=== PATIENT | male | born 1940 | race Caucasian/White ===

== ENCOUNTER 2022-05-29 12:41 | Outpatient (CLI) | payer MEDICARE, BC, SELFPAY | END 2022-05-29 12:42 | disposition home or self-care (01) | LOC: AMB 06-27 14:40 | PROVIDERS: PCP Family Medicine; Visit Provider Emergency Medicine Emergency Medical Services | DX: M25.561 Pain in right knee (principal) ==

== ENCOUNTER 2023-07-23 20:05 | Outpatient (CLI) | payer MEDICARE, BC, SELFPAY | END 2023-07-23 20:06 | disposition home or self-care (01) | LOC: AMB 07-27 10:13 | PROVIDERS: PCP Internal Medicine; Visit Provider Emergency Medicine | DX: R53.1 Weakness (principal); R51.9 Headache, unspecified; I10 Essential (primary) hypertension | CPT/HCPCS: A0425; A0427 ==

== ENCOUNTER 2023-07-23 20:34 | Inpatient (IN) | payer MEDICARE, BC, SELFPAY ==
[2023-07-23] VITALS (12 sets, daily range): BP systolic 182–199; BP diastolic 103–162; PULSE 92–96; RESP 16; TEMP 37.9; O2SAT 92–98
--- NOTE | 2023-07-23 21:06 | CRLHL7_ITS ---
For Patients: As a result of the Cures Act, medical imaging exams and procedure reports are released immediately into your electronic medical record. You may view this report before your referring provider. If you have questions, please contact your health care provider. INDICATION: Fever, cough TECHNIQUE: Chest radiograph 1 view COMPARISON: 09/12/2020 FINDINGS: The sensitivity and specificity of the exam are moderately limited by the patient`s body habitus. Mediastinum: The mediastinum is normal in appearance. The cardiac silhouette is moderately enlarged but may be accentuated by the portable technique. Gas lucencies are seen below the right hemidiaphragm and likely due to interposed bowel loops given its morphology. Lung: Both lungs are unremarkable in appearance. No sign of pleural effusion seen. No pneumothorax is identified. Bone and Soft tissue: Unremarkable for age. IMPRESSION: 1. The cardiac silhouette is moderately enlarged but may be accentuated by the portable technique. Dictated by Doc Singer MD @ 07/23/2023 9:41:58 PM Dictated by: Doc Singer MD @ 07/23/2023 21:42:03 (Electronically Signed)
[2023-07-23 21:14] LABS: Lactate Sepsis w/Reflex* 1.5 mmol/L (0.5-1.9)
--- NOTE | 2023-07-23 21:21 | ED.GENADULT ---
HPI - General Adult General Date Seen: 07/23/23 Chief complaint: Weakness Stated complaint: pain Time Seen by Provider: 07/23/23 20:51 Source: patient, EMS and RN notes reviewed Mode of arrival: EMS Limitations: no limitations History of Present Illness HPI narrative: Patient is an 83-year-old who lives independently at [facility]. Comes in tonight because of weakness, inability to get off his chair. He normally walks independently with a cane. He says he has felt poorly since yesterday with headache, sore throat, cough, shortness of breath and body aches. He feels generally weak, no focal weakness. He has not had any vomiting or diarrhea. No abdominal pain but he has had nausea. No chest pain. Paramedics apparently had concerns about atrial fibrillation, heart rate is normal on monitor and looks regular. He has no complaints of palpitations lightheadedness or syncope. Related Data Previous Rx's Medication Instructions Recorded diltiazem HCl 120 mg capsule,24 120 mg PO QDAY #90 caps 07/12/22 hr,extended release hydrochlorothiazide 25 mg tablet 25 mg PO QDAY #90 tabs 07/12/22 quetiapine 25 mg tablet 25 mg PO .Bedtime as needed PRN 07/12/22 anxiety #90 tabs Allergies Allergy/AdvReac Type Severity Reaction Status Date / Time house dust Allergy Mild Sneezing Verified 07/12/22 15:15 Review of Systems Status of ROS: Reports: 10 or more systems reviewed and unremarkable except as noted in History and below [facility] Medical History (Updated 07/24/23 @ 00:01 by Coty Noel MD) Unsteady gait ?R26.81 - Unsteadiness on feet (ICD-10) Supraventricular tachycardia ?I47.1 - Supraventricular tachycardia (ICD-10) Panic attack ?F41.0 - Panic disorder [episodic paroxysmal anxiety] (ICD-10) Nausea and vomiting ?R11.2 - Nausea with vomiting, unspecified (ICD-10) Mild cognitive impairment ?G31.84 - Mild cognitive impairment, so stated (ICD-10) Leukocytosis ?D72.829 - Elevated white blood cell count, unspecified (ICD-10) Hypertension ?I10 - Essential (primary) hypertension (ICD-10) High serum lactic acid ?R79.89 - Other specified abnormal findings of blood chemistry (ICD-10) Generalized anxiety disorder ?F41.1 - Generalized anxiety disorder (ICD-10) Gastroenteritis ?K52.9 - Noninfective gastroenteritis and colitis, unspecified (ICD-10) Excessive cerumen in ear canal ?H61.20 - Impacted cerumen, unspecified ear (ICD-10) Epigastric pain ?R10.13 - Epigastric pain (ICD-10) Due for screening ?Z13.9 - Encounter for screening, unspecified (ICD-10) Dehydration ?E86.0 - Dehydration (ICD-10) Ataxia ?R27.0 - Ataxia, unspecified (ICD-10) Anterior dislocation of right shoulder ?S43.014A - Anterior dislocation of right humerus, initial encounter (ICD-10) Acute gastroenteritis ?K52.9 - Noninfective gastroenteritis and colitis, unspecified (ICD-10) Excessive cerumen in both ear canals ?H61.23 - Impacted cerumen, bilateral (ICD-10) Weakness ?R53.1 - Weakness (ICD-10) Social History (Updated 07/23/23 @ 23:43 by Rishi Barlow MD) Narrative: Patient lives alone at [facility]. He is originally from [facility]. 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 His brother Ebenezer from [place], [place] is his healthcare power of claims attorney. Code status is DNR. He indicates that he would not want to be intubated if he developed respiratory failure from COVID. At [facility] he lives independently but does get meals in the dining room. He has never been a smoker. He does not drink alcohol. Smoking Status: Never smoker Non-prescribed substance use: denies use Exam Narrative: Exam Narrative: Vital signs as noted above. In general, an alert, nontoxic elderly male. Conversant, cooperative. Head: Normocephalic, atraumatic. Eyes: Pupils are equal reactive. Extraocular movements are full. Conjunctivae are normal. ENT: Mucous membranes are moist. Neck: Supple without lymphadenopathy. Heart: Regular rate and rhythm. No murmur or rub. Lungs: Clear bilaterally. No increased work of breathing, crackles or wheezes. Abdomen: Soft and nontender. No organomegaly. Extremities: Well perfused. No edema. No calf tenderness. Pulses intact. Neurologic: Patient is alert and oriented to person and place. Speech is fluent. Face is symmetric. Moves all extremities equally. Affect: Normal. Skin: Warm and dry. Well perfused. Const: Vital Signs, click to edit/add: Vital Signs - 24 hr 07/23/23 20:51 07/23/23 21:32 07/23/23 21:35 Temperature 100.2 F H Pulse Rate 96 Pulse Rate [Left P ulse Oximeter] 93 Respiratory Rate 16 Blood Pressure 192/162 H Blood Pressure [Le ft Upper Arm] 186/103 H Pulse Oximetry 95 98 96 Oxygen Delivery Me thod Room Air 07/23/23 21:36 07/23/23 21:45 07/23/23 21:47 Temperature Pulse Rate 94 93 94 Pulse Rate [Left P ulse Oximeter] Respiratory Rate Blood Pressure 192/110 H Blood Pressure [Le ft Upper Arm] Pulse Oximetry 96 95 95 Oxygen Delivery Me thod 07/23/23 22:00 07/23/23 22:02 07/23/23 22:15 Temperature Pulse Rate 94 94 94 Pulse Rate [Left P ulse Oximeter] Respiratory Rate Blood Pressure 190/111 H Blood Pressure [Le ft Upper Arm] Pulse Oximetry 96 96 97 Oxygen Delivery Me thod 07/23/23 22:16 07/23/23 22:30 07/23/23 22:31 Temperature Pulse Rate 94 92 93 Pulse Rate [Left P ulse Oximeter] Respiratory Rate Blood Pressure 199/104 H 182/110 H Blood Pressure [Le ft Upper Arm] Pulse Oximetry 92 94 94 Oxygen Delivery Me thod Documenting provider has reviewed patient's vital signs: yes Course Course ED Course: Will give some Tylenol and IV fluids here, check labs including a CBC, viral testing, UA and a chest x-ray to evaluate for possible source of fever and generalized weakness. Rule out COVID. Labs notable for a white blood cell count of 8.79, left shift with 84% neutrophils. Hemoglobin and platelets are normal. Metabolic panel is normal, blood sugar is 135. Lactate 1.5, LFTs are unremarkable. Troponin is less than 0.01. CRP mildly elevated at 3.7, D-dimer mildly elevated at 1.14. TSH is normal. COVID is positive. Chest x-ray by my review is fairly unremarkable, read as negative by Radiology. Patient has weakness presenting him from managing at home in his independent living situation. Plan will be admission to the hospital for observation, Remdesivir. D-dimer is very minimally elevated for age, he is not hypoxic, tachycardic, tachypneic, overall given diagnosis of COVID my suspicion of PE is quite low. Discussed with hospitalist, holding off on CT for now. Vital Signs Vital signs: Initial Vital Signs Temperature 100.2 F H 07/23/23 20:51 Temperature Source Temporal Artery Scan 07/23/23 20:51 Pulse Rate 93 07/23/23 20:51 Respiratory Rate 16 07/23/23 20:51 Blood Pressure 186/103 H 07/23/23 20:51 Blood Pressure Mean 130 H 07/23/23 20:51 Blood Pressure Position Semi-Fowlers 07/23/23 20:51 Pulse Oximetry 95 07/23/23 20:51 Oxygen Delivery Method Room Air 07/23/23 20:51 Vital Signs Temperature 100.2 F H 07/23/23 20:51 Pulse Rate 93 07/23/23 20:51 Respiratory Rate 16 07/23/23 20:51 Blood Pressure 186/103 H 07/23/23 20:51 Pulse Oximetry 95 07/23/23 20:51 Oxygen Delivery Method Room Air 07/23/23 20:51 Temperature 100.2 F H 07/23/23 20:51 Pulse Rate 93 07/23/23 22:31 Respiratory Rate 16 07/23/23 20:51 Blood Pressure 182/110 H 07/23/23 22:31 Pulse Oximetry 94 07/23/23 22:31 Oxygen Delivery Method Room Air 07/23/23 20:51 Medical Decision Making Lab Data Labs: Lab Results 07/23/23 07/23/23 07/23/23 Range/Units 20:59 21:18 23:35 WBC 8.79 (4.50-11.00) K/uL RBC 5.33 (4.30-5.90) m/uL Hgb 16.6 (13.5-17.5) gm/dL Hct 47.6 (37.0-53.0) % MCV 89 (80-100) fL MCH 31 (26-34) pg MCHC 35 (32-36) gm/dL RDW Coeff of Danii 12.8 (11.5-15.5) % Plt Count 204 (140-440) K/uL Neut % (Auto) 83.5 H (42.0-72.0) % Lymph % (Auto) 5.6 L (20-44) % Juncos % (Auto) 9.7 (0.0-11.0) % Eos % (Auto) 0.1 (0.0-7.0) % Baso % (Auto) 0.2 (0.0-3.0) % Neut # (Auto) 7.30 H (1.7-7.0) K/uL Lymph # (Auto) 0.50 L (0.90-2.90) K/uL Juncos # (Auto) 0.90 (0.00-0.90) K/UL Eos # (Auto) 0.01 (0.00-0.50) K/uL Baso # (Auto) 0.02 (0.00-0.30) K/uL Abs Immat Gran (auto) 0.08 (0.00-0.30) K/uL Imm/Tot Granulo (auto) 0.9 % D-Dimer Quant (PE/DVT) 1.14 H (0.00-0.50) ug/ml Sodium 138 (135-149) mmol/L Potassium 3.7 (3.6-5.1) mmol/L Chloride 102 (96-114) mmol/L Carbon Dioxide 24 (20-32) mmol/L Anion Gap 12 (7-15) mEq/L BUN 20 (7-30) mg/dL Creatinine 1.2 (0.5-1.5) mg/dL Estimated GFR 60 ml/min Glucose 135 H (60-115) mg/dL Lactate 1.5 (0.5-1.9) mmol/L Calcium 9.9 (8.4-10.6) mg/dL Magnesium 2.1 (1.5-2.6) mg/dL Total Bilirubin 1.2 (0.1-1.5) mg/dL Direct Bilirubin 0.2 (0.0-0.5) mg/dL AST 44 H (12-35) U/L ALT 28 (4-50) U/L Alkaline Phosphatase 135 (40-150) U/L Troponin I < 0.01 L (0.01-0.04) ng/mL C-Reactive Protein 3.7 H (0.5-1.0) mg/dL Total Protein 9.3 H (6.0-8.3) g/dL Albumin 5.0 (3.3-5.0) g/dL TSH 1.240 (0.270-4.200) uIU/mL SARS-CoV-2 (PCR) POSITIVE SARS-CoV-2 A (Negative) Influenza Type A (PCR) Negative PCR FLU A (Negative) Influenza Type B (PCR) Negative PCR FLU B (Negative) RSV (PCR) Negative PCR RSV (Negative) Lab Acknowledgement Test Added Discharge Plan Discharge Clinical Impression: COVID-19, Weakness Patient Disposition: Admitted As Observation Condition: Stable
[2023-07-23 21:32] LABS: Chloride* 102 mmol/L (96-114); Sodium* 138 mmol/L (135-149)
[2023-07-23 21:33] LABS: Potassium* 3.7 mmol/L (3.6-5.1)
[2023-07-23 21:35] LABS: Creatinine* 1.2 mg/dL (0.5-1.5); D Dimer Quantitative* 1.14 ug/ml (0.00-0.50); Estimated Glomerular Filt Rate 60 ml/min
[2023-07-23 21:36] LABS: Alanine Aminotransferase* 28 U/L (4-50); Alkaline Phosphatase* 135 U/L (40-150); Anion Gap 12 mEq/L (7-15); Aspartate Amino Transferase* 44 U/L (12-35); Bilirubin Direct* 0.2 mg/dL (0.0-0.5); Bilirubin Total* 1.2 mg/dL (0.1-1.5); Blood Urea Nitrogen* 20 mg/dL (7-30); Calcium* 9.9 mg/dL (8.4-10.6); Carbon Dioxide* 24 mmol/L (20-32); Glucose* 135 mg/dL (60-115); Magnesium* 2.1 mg/dL (1.5-2.6); Total Protein* 9.3 g/dL (6.0-8.3)
[2023-07-23 21:39] LABS: C Reactive Protein* 3.7 mg/dL (0.5-1.0)
[2023-07-23 21:53] LABS: Troponin I* < 0.01 ng/mL (0.01-0.04)
[2023-07-23 22:15] LABS: PCR FLU A Negative PCR FLU A (Negative); PCR FLU B Negative PCR FLU B (Negative); PCR RSV Negative PCR RSV (Negative)
[2023-07-23 22:31] LABS: SARS PCR* POSITIVE SARS-CoV-2 (Negative)
--- NOTE | 2023-07-23 23:07 | ED.NURSE ---
patients connie bray updated that patient will be staying and that he is COVID+
--- NOTE | 2023-07-23 23:37 | P.IMHP_ITS ---
Hospitalist- H&P: HPI History of Present Illness Date Seen: 07/23/23 Chief complaint: pain Narrative: Eliceo Frausto is a 83 year old male with hypertension who presents with a 2 day history of cough weakness dyspnea achiness. He has been exposed to COVID. He has not been eating or drinking much. Unable to get up out of a chair today which led to him coming to the emergency department. Patient denies any significant past history except hypertension. Question of some cognitive impairment. Reports no previous hospitalizations and no previous surgeries. Review of Systems Narrative: Other than the onset of symptoms of illness in the last 2 days he reports feeling fine. [facility] Medical History (Updated 07/23/23 @ 23:49 by Rishi Barlow MD) Unsteady gait ?R26.81 - Unsteadiness on feet (ICD-10) Supraventricular tachycardia ?I47.1 - Supraventricular tachycardia (ICD-10) Panic attack ?F41.0 - Panic disorder [episodic paroxysmal anxiety] (ICD-10) Nausea and vomiting ?R11.2 - Nausea with vomiting, unspecified (ICD-10) Mild cognitive impairment ?G31.84 - Mild cognitive impairment, so stated (ICD-10) Leukocytosis ?D72.829 - Elevated white blood cell count, unspecified (ICD-10) Hypertension ?I10 - Essential (primary) hypertension (ICD-10) High serum lactic acid ?R79.89 - Other specified abnormal findings of blood chemistry (ICD-10) Generalized anxiety disorder ?F41.1 - Generalized anxiety disorder (ICD-10) Gastroenteritis ?K52.9 - Noninfective gastroenteritis and colitis, unspecified (ICD-10) Excessive cerumen in ear canal ?H61.20 - Impacted cerumen, unspecified ear (ICD-10) Epigastric pain ?R10.13 - Epigastric pain (ICD-10) Due for screening ?Z13.9 - Encounter for screening, unspecified (ICD-10) Dehydration ?E86.0 - Dehydration (ICD-10) Ataxia ?R27.0 - Ataxia, unspecified (ICD-10) Anterior dislocation of right shoulder ?S43.014A - Anterior dislocation of right humerus, initial encounter (ICD-10) Acute gastroenteritis ?K52.9 - Noninfective gastroenteritis and colitis, unspecified (ICD-10) Excessive cerumen in both ear canals ?H61.23 - Impacted cerumen, bilateral (ICD-10) Weakness ?R53.1 - Weakness (ICD-10) Social History (Updated 07/23/23 @ 23:43 by Rishi Barlow MD) Narrative: Patient lives alone at [facility]. He is originally from [place]. 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 His brother Ebenezer from [place], [place] is his healthcare power of ip attorney. Code status is DNR. He indicates that he would not want to be intubated if he developed respiratory failure from COVID. At [facility] he lives independently but does get meals in the dining room. He has never been a smoker. He does not drink alcohol. Smoking Status: Never smoker Non-prescribed substance use: denies use Meds Home Medications and Allergies Home Medication Comments: Diltiazem 120 mg at bedtime, hydrochlorothiazide 25 mg at bedtime, quetiapine 25 mg at bedtime. Allergies Allergy/AdvReac Type Severity Reaction Status Date / Time house dust Allergy Mild Sneezing Verified 07/12/22 15:15 Exam Narrative: Exam Narrative: He is alert and oriented to being in the hospital. He is able to give basic past medical history. Head is without trauma. Eyes are normal. Oropharynx is normal except for dry mucous membranes. Neck is supple without mass or adenopathy. Respirations are clear to auscultation. No wheezing rales or rhonchi. Cardiovascular: S1, S2, regular rate and rhythm. Occasional premature beat. Abdomen is soft without tenderness or mass. External genitalia normal except for a large nontender inguinal hernia extending into his scrotum. Lower extremities without edema. He has diminished pedal pulses. He moves all 4 extremities well. Const: Vital Signs, click to edit/add: Vital Signs - 24 hr 07/23/23 20:51 07/23/23 21:32 07/23/23 21:35 Temperature 100.2 F H Pulse Rate 96 Pulse Rate [Left P ulse Oximeter] 93 Respiratory Rate 16 Blood Pressure 192/162 H Blood Pressure [Le ft Upper Arm] 186/103 H Pulse Oximetry 95 98 96 Oxygen Delivery Me thod Room Air 07/23/23 21:36 07/23/23 21:45 07/23/23 21:47 Temperature Pulse Rate 94 93 94 Pulse Rate [Left P ulse Oximeter] Respiratory Rate Blood Pressure 192/110 H Blood Pressure [Le ft Upper Arm] Pulse Oximetry 96 95 95 Oxygen Delivery Me thod 07/23/23 22:00 07/23/23 22:02 07/23/23 22:15 Temperature Pulse Rate 94 94 94 Pulse Rate [Left P ulse Oximeter] Respiratory Rate Blood Pressure 190/111 H Blood Pressure [Le ft Upper Arm] Pulse Oximetry 96 96 97 Oxygen Delivery Me thod 07/23/23 22:16 07/23/23 22:30 07/23/23 22:31 Temperature Pulse Rate 94 92 93 Pulse Rate [Left P ulse Oximeter] Respiratory Rate Blood Pressure 199/104 H 182/110 H Blood Pressure [Le ft Upper Arm] Pulse Oximetry 92 94 94 Oxygen Delivery Me thod Documenting provider has reviewed patient's vital signs: yes Hospitalist - H&P: Result Labs Labs: [facility] 07/23/23 20:59 Sodium 138 Potassium 3.7 Chloride 102 Carbon Dioxide 24 BUN 20 Creatinine 1.2 Glucose 135 H Calcium 9.9 Cardiac Enzymes 07/23/23 Range/Units 20:59 Troponin I < 0.01 L (0.01-0.04) ng/mL Liver Function 07/23/23 Range/Units 20:59 Total Bilirubin 1.2 (0.1-1.5) mg/dL Direct Bilirubin 0.2 (0.0-0.5) mg/dL AST 44 H (12-35) U/L ALT 28 (4-50) U/L Alkaline Phosphatase 135 (40-150) U/L Albumin 5.0 (3.3-5.0) g/dL Imaging Chest x-ray: Attestation: I have reviewed the pertinent imaging results. (No acute findings) Assessment and Plan Assessment and plan (1) COVID-19: Problem comment: This appears to be the cause of his cough, fever, loss of appetite and weakness. Will admit to the hospital for IV fluids, monitoring for respiratory complications, physical therapy. Anticipate improvement over the next few days Status: Acute (2) Hypertension: Problem comment: Restart diltiazem. Hold hydrochlorothiazide until able to take in fluids and IV fluids can be discontinued Status: Chronic (3) Mild cognitive impairment: Status: Chronic (4) Weakness: Problem comment: Profound weakness. Likely has some chronic weakness but was ambulating independently. Now unable to stand up. Therapy to evaluate and treat. Status: Acute Plan Patient is admitted to the hospital with profound weakness and fever and cough and loss of appetite due to COVID. Will admit for IV fluids and assistance unt il he is strong enough to care for himself. Monitor for complications of COVID including pneumonia. Total time spent is 60 minutes in coordination of care and discussing with patient and other providers management of COVID illness.
--- NOTE | 2023-07-23 23:51 | PC.NURSE ---
report given to Karo BOWER on [facility], patient to room 276
[2023-07-23 23:53] LABS: Basophils Absolute Auto 0.02 K/uL (0.00-0.30); Basophils Percent Auto 0.2 % (0.0-3.0); Eosinophils Absolute Auto 0.01 K/uL (0.00-0.50); Eosinophils Percent Auto 0.1 % (0.0-7.0); Hematocrit 47.6 % (37.0-53.0); Hemoglobin* 16.6 gm/dL (13.5-17.5); Immature Granulocytes Abs Auto 0.08 K/uL (0.00-0.30); Immature Granulocytes Pct Auto 0.9 %; Lymphocytes Percent Auto 5.6 % (20-44); Mean Corpuscular HGB Conc 35 gm/dL (32-36); Mean Corpuscular Hemoglobin 31 pg (26-34); Mean Corpuscular Volume 89 fL (80-100); Monocytes Percent Auto 9.7 % (0.0-11.0); Neutrophils Percent Auto 83.5 % (42.0-72.0); Platelet Count* 204 K/uL (140-440); RDW Coefficient of Variation % 12.8 % (11.5-15.5); Red Blood Count 5.33 m/uL (4.30-5.90); Slide Review Reflex No; White Blood Count* 8.79 K/uL (4.50-11.00)
[2023-07-24] VITALS (8 sets, daily range): BP systolic 172–201; BP diastolic 85–114; PULSE 66–90; RESP 18–22; TEMP 36.8–37.5; O2SAT 94–96; BMI 31.4
[2023-07-24] MEDS: ACETAMINOPHEN 325 MG TABLET 650 MG PO ×4 (00:49→21:21)
[2023-07-24] MEDS: QUETIAPINE 25 MG TABLET PO ×2 (00:49→21:21)
[2023-07-24] MEDS: LACTATED RINGERS 1000 ML 1,000 ML 75 ML IV ×2 (00:50→13:47)
[2023-07-24] MEDS: ENOXAPARIN 40 MG/0.4 ML INJ SUBCUT ×2 (00:50→21:21)
[2023-07-24] MEDS: dilTIAZem 120 MG CAP.ER.24H PO ×2 (00:50→21:21)
[2023-07-24 01:14] LABS: Appearance Urine Clear (Clear); Bilirubin Urine Negative (Negative); Blood Urine 1+ (Negative); Color Urine Yellow (Yellow); Glucose Urine Negative (Negative); Ketones Urine Trace (Negative); Leukocyte Esterase Urine Negative (Negative); Nitrite Urine Negative (Negative); Protein Urine Negative (Negative); Urobilinogen Urine 0.2 (0.2-1.0); pH Urine 5.5 (5.0-8.5)
[2023-07-24 01:58] LABS: Bacteria Urine Few; RBC Urine 0-2 (0-2); Squamous Epithelial Cell Urine Few (None-Few); WBC Urine 0-2 (0-5)
--- NOTE | 2023-07-24 07:01 | PC.NURSE ---
pt to floor 0008: pleasant. A x 1-2 to stand at bedside to use urinal, pt weak. Frequent urination, up Q1H to urinate with minimal output, < 100ml with each void. Post void bladder scan ~40mL~. Groin very tender to touch. Touch Up Painter Hand asked pt if urinary frequency with minimal output is normal for him, he stated that if he takes his Seroquel at HS he is not up frequently to urinate, reminded pt that he did get his HS dose. Unsure if this is new for pt.
--- NOTE | 2023-07-24 14:20 | PC.SOCIAL ---
Discharge planning: Called [facility] senior designer/art director, Elma [phone]. Elma confirmed pt is living in the independent apartments with no services. If pt is needing PT/OT cigarette filter inspector services at discharge, this would need to be set up through [facility] prior to discharge and RN at [facility] would need to come to the hospital for an in-person assessment of need. Per Elma, there are no restrictions of how many days post COVID diagnosis, pt can return to [facility]. When discharge date and needs at discharge are determined, this information will be shared with Elma and needed services coordinated prior to discharge. putty worker to follow up as needed.
--- NOTE | 2023-07-24 16:02 | PM.IMPN1 ---
Progress Note: A&P Assessment and plan (1) COVID-19: Problem details: This appears to be the cause of his cough, fever, loss of appetite and weakness. Not currently requiring oxygen supplementation. Continue IV fluids, with plan to discontinue with adequate oral intake Discussed Paxlovid with pharmacy. As patient is on diltiazem, Annual Giving Director 1.2, would not recommend starting this medication. Physical therapy for weakness student services rep reports patient able to return to independent living at [facility] without completing full quarantine when medically stable. Would have to order for additional services if needed. Status: Acute (2) Hypertension: Problem details: Restart diltiazem. Hold hydrochlorothiazide until able to take in fluids and IV fluids can be discontinued Status: Chronic (3) Mild cognitive impairment: Problem details: Monitor for acute changes Status: Chronic Plan Continue to monitor, working on improving strength, with plan to return to [facility] independent living Time Spent With Patient Total time spent: Total time spent caring for the patient today was 45 minutes. This includes time spent for the visit reviewing the chart, time spent during the visit, time spent after the visit and documentation and planning in coordination of care. Subjective Date Seen: 07/24/23 Interval history: Patient continues to feel quite weak. Denies headache or dizziness. Denies chest pain or shortness of breath. Oxygen saturations appropriate on room air. Afebrile. Decreased appetite. No events reported overnight Exam Narrative: Exam Narrative: PHYSICAL EXAM General: Lying reclined in bed, appears tired otherwise NAD HEENT: Normocephalic, atraumatic, sclera white, EOMI, oral mucosa moist Cardiovascular: RRR, Pulmonary: CTA bilaterally without rhonchi, rales, expiratory wheezes, mildly diminished. No dyspnea on room air Neurological: Alert, answering questions appropriately, cranial nerves intact, no focal findings Extremities: No gross joint deformity or swelling. AROMI. Neurovascularly intact Skin: Warm, dry. Const: Vital Signs, click to edit/add: Vital Signs - 24 hr 07/23/23 20:51 07/23/23 21:32 07/23/23 21:35 Temperature 100.2 F H Pulse Rate 96 Pulse Rate [Left P ulse Oximeter] 93 Pulse Rate [Pulse Oximeter] Respiratory Rate 16 Blood Pressure 192/162 H Blood Pressure [Le ft Arm] Blood Pressure [Le ft Upper Arm] 186/103 H Pulse Oximetry 95 98 96 Oxygen Delivery Me thod Room Air 07/23/23 21:36 07/23/23 21:45 07/23/23 21:47 Temperature Pulse Rate 94 93 94 Pulse Rate [Left P ulse Oximeter] Pulse Rate [Pulse Oximeter] Respiratory Rate Blood Pressure 192/110 H Blood Pressure [Le ft Arm] Blood Pressure [Le ft Upper Arm] Pulse Oximetry 96 95 95 Oxygen Delivery Me thod 07/23/23 22:00 07/23/23 22:02 07/23/23 22:15 Temperature Pulse Rate 94 94 94 Pulse Rate [Left P ulse Oximeter] Pulse Rate [Pulse Oximeter] Respiratory Rate Blood Pressure 190/111 H Blood Pressure [Le ft Arm] Blood Pressure [Le ft Upper Arm] Pulse Oximetry 96 96 97 Oxygen Delivery Me thod 07/23/23 22:16 07/23/23 22:30 07/23/23 22:31 Temperature Pulse Rate 94 92 93 Pulse Rate [Left P ulse Oximeter] Pulse Rate [Pulse Oximeter] Respiratory Rate Blood Pressure 199/104 H 182/110 H Blood Pressure [Le ft Arm] Blood Pressure [Le ft Upper Arm] Pulse Oximetry 92 94 94 Oxygen Delivery Me thod 07/24/23 00:30 07/24/23 01:32 07/24/23 03:00 Temperature 98.4 F 98.2 F Pulse Rate Pulse Rate [Left P ulse Oximeter] Pulse Rate [Pulse Oximeter] 90 80 Respiratory Rate 20 20 22 Blood Pressure Blood Pressure [Le ft Arm] 188/108 H 201/101 H Blood Pressure [Le ft Upper Arm] Pulse Oximetry 95 95 96 Oxygen Delivery Me thod Room Air Room Air Room Air 07/24/23 08:29 07/24/23 11:00 Temperature 99.5 F 98.5 F Pulse Rate Pulse Rate [Left P ulse Oximeter] Pulse Rate [Pulse Oximeter] 86 66 Respiratory Rate 20 18 Blood Pressure Blood Pressure [Le ft Arm] 174/94 H 172/85 H Blood Pressure [Le ft Upper Arm] Pulse Oximetry 94 94 Oxygen Delivery Me thod Room Air Room Air Labs Labs: Laboratory Results - last 24 hr 07/23/23 07/23/23 07/23/23 20:59 21:18 23:35 WBC 8.79 RBC 5.33 Hgb 16.6 Hct 47.6 MCV 89 MCH 31 MCHC 35 RDW Coeff of Danii 12.8 Plt Count 204 Neut % (Auto) 83.5 H Lymph % (Auto) 5.6 L Rooks % (Auto) 9.7 Eos % (Auto) 0.1 Baso % (Auto) 0.2 Neut # (Auto) 7.30 H Lymph # (Auto) 0.50 L Rooks # (Auto) 0.90 Eos # (Auto) 0.01 Baso # (Auto) 0.02 Abs Immat Gran (auto) 0.08 Imm/Tot Granulo (auto) 0.9 D-Dimer Quant (PE/DVT) 1.14 H Sodium 138 Potassium 3.7 Chloride 102 Carbon Dioxide 24 Anion Gap 12 BUN 20 Creatinine 1.2 Estimated GFR 60 Glucose 135 H Lactate 1.5 Calcium 9.9 Magnesium 2.1 Total Bilirubin 1.2 Direct Bilirubin 0.2 AST 44 H ALT 28 Alkaline Phosphatase 135 Troponin I < 0.01 L C-Reactive Protein 3.7 H Total Protein 9.3 H Albumin 5.0 TSH 1.240 Urine Color Urine Appearance Urine pH Ur Specific Union Urine Protein Urine Glucose (UA) Urine Ketones Urine Blood Urine Nitrite Urine Bilirubin Urine Urobilinogen Ur Leukocyte Esterase Urine RBC Urine WBC Ur Squamous Epith Cells Urine Bacteria SARS-CoV-2 (PCR) POSITIVE SARS-CoV-2 A Influenza Type A (PCR) Negative PCR FLU A Influenza Type B (PCR) Negative PCR FLU B RSV (PCR) Negative PCR RSV Lab Acknowledgement Test Added 07/24/23 00:45 WBC RBC Hgb Hct MCV MCH MCHC RDW Coeff of Danii Plt Count Neut % (Auto) Lymph % (Auto) Rooks % (Auto) Eos % (Auto) Baso % (Auto) Neut # (Auto) Lymph # (Auto) Rooks # (Auto) Eos # (Auto) Baso # (Auto) Abs Immat Gran (auto) Imm/Tot Granulo (auto) D-Dimer Quant (PE/DVT) Sodium Potassium Chloride Carbon Dioxide Anion Gap BUN Creatinine Estimated GFR Glucose Lactate Calcium Magnesium Total Bilirubin Direct Bilirubin AST ALT Alkaline Phosphatase Troponin I C-Reactive Protein Total Protein Albumin TSH Urine Color Yellow Urine Appearance Clear Urine pH 5.5 Ur Specific Union 1.020 Urine Protein Negative Urine Glucose (UA) Negative Urine Ketones Trace A Urine Blood 1+ A Urine Nitrite Negative Urine Bilirubin Negative Urine Urobilinogen 0.2 Ur Leukocyte Esterase Negative Urine RBC 0-2 Urine WBC 0-2 Ur Squamous Epith Cells Few Urine Bacteria Few A SARS-CoV-2 (PCR) Influenza Type A (PCR) Influenza Type B (PCR) RSV (PCR) Lab Acknowledgement
--- NOTE | 2023-07-24 17:31 | PM.EN ---
Chart Event Note Time Seen by Provider: 17:31 Date Seen: 07/24/23 Chart Event Note: Nurse hitting staff noted patient was having pain and swelling in his scrotum. When I saw him he reported no pain. Scrotum was enlarged and appeared about the same as last night when I saw him. It was nontender to palpation. He has a known longstanding hernia. No further evaluation is needed unless he gets pain or increased swelling. Ultrasound is canceled
--- NOTE | 2023-07-24 18:06 | PC.NURSE ---
,shift note: pt weak and drowsy. pt orient x3. pt using ceiling lift for transfers.LS clr/dim. pt on RA with sat >92%. BP elevated 174/94,172/85,186/113. Dr. Headley aware. No further orders. Pt incont of urine. scrotum red and tender to touch. Dr. Barlow notified; no further orders. Pt had slight temp 99.5 this am
[2023-07-24] MEDS: MELATONIN 3 MG TABLET PO (21:21)
[2023-07-25] VITALS (9 sets, daily range): BP systolic 151–212; BP diastolic 86–121; PULSE 65–96; RESP 18–26; TEMP 36.7–37.6; O2SAT 93–96
[2023-07-25] MEDS: LACTATED RINGERS 1000 ML 1,000 ML 75 ML IV (03:43)
[2023-07-25] MEDS: HYDRALAZINE HCL 20 MG/ML inj 10 MG IVP (05:57)
[2023-07-25] MEDS: ACETAMINOPHEN 325 MG TABLET 650 MG PO (06:37)
[2023-07-25 06:48] LABS: Basophils Absolute Auto 0.02 K/uL (0.00-0.30); Basophils Percent Auto 0.3 % (0.0-3.0); Hematocrit 42.2 % (37.0-53.0); Hemoglobin* 14.7 gm/dL (13.5-17.5); Immature Granulocytes Abs Auto 0.01 K/uL (0.00-0.30); Immature Granulocytes Pct Auto 0.1 %; Lymphocytes Percent Auto 16.9 % (20-44); Mean Corpuscular HGB Conc 35 gm/dL (32-36); Mean Corpuscular Hemoglobin 32 pg (26-34); Mean Corpuscular Volume 91 fL (80-100); Monocytes Percent Auto 8.5 % (0.0-11.0); Neutrophils Percent Auto 74.2 % (42.0-72.0); Platelet Count* 177 K/uL (140-440); RDW Coefficient of Variation % 12.9 % (11.5-15.5); Red Blood Count 4.66 m/uL (4.30-5.90); White Blood Count* 7.92 K/uL (4.50-11.00)
[2023-07-25] MEDS: ONDANSETRON 2 MG/ML inj 4 MG IVP (06:51)
[2023-07-25 07:02] LABS: Slide Review Reflex No
[2023-07-25 07:20] LABS: Chloride* 102 mmol/L (96-114); Potassium* 3.3 mmol/L (3.6-5.1); Sodium* 130 mmol/L (135-149)
[2023-07-25 07:22] LABS: Est. Creatinine Clearance* 58.81; Estimated Glomerular Filt Rate 75 ml/min
[2023-07-25 07:23] LABS: Anion Gap 4 mEq/L (7-15); Blood Urea Nitrogen* 16 mg/dL (7-30); Calcium* 8.7 mg/dL (8.4-10.6); Carbon Dioxide* 24 mmol/L (20-32); Glucose* 132 mg/dL (60-115)
--- NOTE | 2023-07-25 07:41 | PC.NURSE ---
: pt in bed this shift, able to repo indep. Ceiling lift per PT. pt sets off bed alarm in attempt to stand and use urinal, pt reminded to use call light. Frequent urination with ~100mL output. pt attempts to use urinal indep and misses, required linen change and new gown. groin area tender, pt guards bridget area when assisting with toileting. Nonproductive cough. BP elevated, notified, received one time order for Hydralazine IVP. Pt temp elevated pt stated he was feeling warm, tylenol given and cool compress placed to forehead. pt requested Ensure this AM, pt had few sips and became nauseous, nausea did not subside and pt requested emesis bag, prn zofran given.
[2023-07-25] MEDS: SODIUM CHLORIDE 0.9 % (FLUSH) 10 ML SYRINGE 5 ML IVF ×2 (08:12→21:01)
--- NOTE | 2023-07-25 14:51 | P.IMPN_ITS ---
Progress Note: A&P Assessment and plan (1) COVID-19: Problem details: This appears to be the cause of his cough, fever, loss of appetite and weakness. Not currently requiring oxygen supplementation. UC/BC NGTD IV fluids completed, continue to encourage oral intake Discussed Paxlovid with pharmacy. As patient is on diltiazem, Dexigraph Operator 1.2, would not recommend starting this medication. PT/OT for weakness medical staff services manager reports patient able to return to independent living at [facility] without completing full quarantine when medically stable. Would have to order for additional services if needed. Status: Acute (2) Hypertension: Problem details: Continue diltiazem, restart hydrochlorothiazide Status: Chronic (3) Mild cognitive impairment: Problem details: Monitor for acute delirium, inappropriate behaviors No neurological focal findings noted on exam today Status: Chronic (4) Electrolyte abnormality: Problem details: -mild hyponatremia, sodium 130, likely in setting of acute illness and recent IVF hydration, continue to monitor -mild hypokalemia, potassium 3.3, replace with 2 doses potassium chloride, recheck in a.m. Status: Acute Plan Awaiting improvement in ambulation, independence with self cares with hopeful plan to return to independent living with increased services if needed Time Spent With Patient Total time spent: Total time spent caring for the patient today was 45 minutes. This includes time spent for the visit reviewing the chart, time spent during the visit, time spent after the visit and documentation and planning in coordination of care. Subjective Date Seen: 07/25/23 Interval history: Patient more alert and awake this morning. Continues to be quite slowed. Denies headache or dizziness. Denies chest pain or shortness of breath. Nursing staff reporting patient is requesting female nurses to scratch his balls. No other events reported to me at this time. Exam Narrative: Exam Narrative: PHYSICAL EXAM General: Lying in bed, NAD HEENT: Normocephalic, atraumatic, sclera white, EOMI, oral mucosa moist Cardiovascular: RRR no pitting edema Pulmonary: CTA bilaterally without rhonchi, rales, expiratory wheezes, mildly diminished. No dyspnea on room air Neurological: Alert, answering questions appropriately, A&O x3, cranial nerves intact, no focal findings, UE/LE strength and coordination intact equal bilaterally Genitourinary: No erythema, streaking, rash or edema Extremities: No gross joint deformity or swelling. AROMI. Neurovascularly intact Skin: Warm, dry. Const: Vital Signs, click to edit/add: Vital Signs - 24 hr 07/24/23 15:00 07/24/23 19:00 07/24/23 23:00 Temperature 98.7 F 98.5 F Pulse Rate [Pulse Oximeter] 73 76 Respiratory Rate 18 18 20 Blood Pressure [Le ft Arm] 186/113 H 174/114 H Blood Pressure [Ri ght Arm] Pulse Oximetry 94 95 Oxygen Delivery Me thod Room Air Room Air 07/25/23 00:54 07/25/23 05:00 07/25/23 06:33 Temperature 98.4 F 98.2 F 99.7 F H Pulse Rate [Pulse Oximeter] 74 88 96 Respiratory Rate 20 26 H 20 Blood Pressure [Le ft Arm] 160/95 H 212/121 H 188/109 H Blood Pressure [Ri ght Arm] Pulse Oximetry 94 93 96 Oxygen Delivery Me thod Room Air Room Air Room Air 07/25/23 06:37 07/25/23 07:00 07/25/23 07:00 Temperature 99.7 F H 99.1 F Pulse Rate [Pulse Oximeter] 81 Respiratory Rate 22 22 Blood Pressure [Le ft Arm] 160/103 H Blood Pressure [Ri ght Arm] Pulse Oximetry 93 Oxygen Delivery Me thod Room Air 07/25/23 11:52 Temperature 99.1 F Pulse Rate [Pulse Oximeter] 78 Respiratory Rate 20 Blood Pressure [Le ft Arm] Blood Pressure [Ri ght Arm] 151/86 H Pulse Oximetry 94 Oxygen Delivery Me thod Room Air Labs Labs: Laboratory Results - last 24 hr 07/25/23 06:15 WBC 7.92 RBC 4.66 Hgb 14.7 Hct 42.2 MCV 91 MCH 32 MCHC 35 RDW Coeff of Danii 12.9 Plt Count 177 Neut % (Auto) 74.2 H Lymph % (Auto) 16.[address] [place] % (Auto) 8.5 Eos % (Auto) 0.0 Baso % (Auto) 0.3 Neut # (Auto) 5.90 Lymph # (Auto) 1.30 [place] # (Auto) 0.70 Eos # (Auto) 0.00 Baso # (Auto) 0.02 Abs Immat Gran (auto) 0.01 Imm/Tot Granulo (auto) 0.1 Sodium 130 L Potassium 3.3 L Chloride 102 Carbon Dioxide 24 Anion Gap 4 L BUN 16 Creatinine 1.0 Estimated Creat Clear 58.81 Estimated GFR 75 Glucose 132 H Calcium 8.7
[2023-07-25] MEDS: hydroCHLOROthiazide 25 MG TABLET PO (17:14)
[2023-07-25] MEDS: 0.9 % SODIUM CHLORIDE 250 ml IV (17:15)
[2023-07-25] MEDS: POTASSIUM CHLORIDE 10 MEQ CAPSULE ER 20 MEQ PO (17:18)
--- NOTE | 2023-07-25 18:26 | PC.NURSE ---
Patient A&O throughout this shift. He became more alert & more mobile throughout the day. Recommend Ax2 with gait belt & walker to get from bed to chair or chair to standing position. Low grade fever 99.1 resolved. Elevated BP trending down; restarted home HCTZ this evening. Intermittent urge incontinence but has been utilizing call light appropriately for assistance standing with urinal. Reported having pain this morning but was unable to specify location or rate it on the pain scale; resolved throughout the day and had no complaints this afternoon. Tolerated PO intake with no complaints of N/V. Able to swallow pills whole with water. Up in chair for most of the day. No BM today. PIV in right AC C/D/I and flushes well. First dose of IV vanco given this evening. K+ 3.3 replaced with 20 mEq PO.
[2023-07-25] MEDS: QUETIAPINE 25 MG TABLET PO (21:01)
[2023-07-25] MEDS: dilTIAZem 120 MG CAP.ER.24H PO (21:01)
[2023-07-25] MEDS: ENOXAPARIN 40 MG/0.4 ML INJ SUBCUT (21:01)
[2023-07-25] MEDS: MELATONIN 3 MG TABLET PO (21:11)
[2023-07-26 03:00] VITALS: BP 162/86; PULSE 67; RESP 18; TEMP 36.7; O2SAT 93
--- NOTE | 2023-07-26 05:01 | PC.NURSE ---
Shift note: Pt is A1, uses urinal at the side of bed. Bp has been high tonight. Denied pain, SOB, and cough. Pt bed alarm went off, when nurse got to room pt was on bed with legs hanging out. Pt said he slipped while trying to use the urinal. Charge nurse informed and said incident report is not necessary since it did not result in a fall. Pt is doing well with O2>90 in room throughout the shift.
[2023-07-26 07:00] VITALS: BP 171/107; PULSE 85; RESP 18; TEMP 36.1; O2SAT 94
[2023-07-26 07:13] LABS: Chloride* 101 mmol/L (96-114); Potassium* 3.3 mmol/L (3.6-5.1); Sodium* 136 mmol/L (135-149)
[2023-07-26 07:15] LABS: Creatinine* 1.2 mg/dL (0.5-1.5); Estimated Glomerular Filt Rate 60 ml/min
[2023-07-26 07:16] LABS: Anion Gap 9 mEq/L (7-15); Blood Urea Nitrogen* 19 mg/dL (7-30); Calcium* 8.8 mg/dL (8.4-10.6); Carbon Dioxide* 26 mmol/L (20-32); Glucose* 97 mg/dL (60-115)
[2023-07-26] MEDS: POTASSIUM CHLORIDE 10 MEQ CAPSULE ER 20 MEQ PO ×2 (08:37→18:28)
[2023-07-26] MEDS: hydroCHLOROthiazide 25 MG TABLET PO (08:37)
[2023-07-26] MEDS: SODIUM CHLORIDE 0.9 % (FLUSH) 10 ML SYRINGE 5 ML IVF ×2 (08:37→20:43)
[2023-07-26 12:00] VITALS: BP 151/93; PULSE 72; RESP 18; TEMP 36.5; O2SAT 93
[2023-07-26 15:55] VITALS: BP 149/94; PULSE 73; RESP 18; TEMP 36.7; O2SAT 95
--- NOTE | 2023-07-26 15:58 | P.IMPN_ITS ---
Progress Note: A&P Assessment and plan (1) COVID-19: Problem details: This appears to be the cause of his cough, fever, loss of appetite and weakness. Not currently requiring oxygen supplementation. UC/BC NGTD IV fluids completed, continue to encourage oral intake Discussed Paxlovid with pharmacy. As patient is on diltiazem, Vacuum Closing Machine Operator 1.2, would not recommend starting this medication. PT/OT for weakness coordinator cardiopulmonary services reports patient able to return to independent living at [facility] without completing full quarantine when medically stable. Would have to order for additional services if needed. 07/26: Patient encouraged to continue increasing strength and ambulation, good oral intake, with plan to return to [facility]. Status: Acute (2) Hypertension: Problem details: Continue diltiazem and hydrochlorothiazide Status: Chronic (3) Mild cognitive impairment: Problem details: Monitor for acute delirium, inappropriate behaviors reported- no reports since 07/24 Status: Chronic (4) Electrolyte abnormality: Problem details: -mild hyponatremia, resolved -mild hypokalemia, potassium 3.3, continue or replacement, continue to monitor Status: Acute Plan Plan to discharge back to [facility] when independent. Would be able to ask for extra services per social human services assistants Time Spent With Patient Total time spent: Total time spent caring for the patient today was 45 minutes. This includes time spent for the visit reviewing the chart, time spent during the visit, time spent after the visit and documentation and planning in coordination of care. Subjective Date Seen: 07/26/23 Interval history: Patient has improved today. Sitting up in a chair by the window this morning. Watching TV and more conversant. Denies headache or dizziness. No chest pain or shortness of breath. Appetite slowly improving. No nausea or vomiting. No events reported overnight. Exam Narrative: Exam Narrative: PHYSICAL EXAM General: Sitting up in chair, appears brighter, more conversant, NAD HEENT: Normocephalic, atraumatic, sclera white, EOMI, oral mucosa moist Cardiovascular: RRR no pitting edema Pulmonary: CTA bilaterally without rhonchi, rales, expiratory wheezes, mildly diminished. No dyspnea on room air Neurological: Alert, answering questions appropriately Extremities: No gross joint deformity or swelling. AROMI. Neurovascularly intact Skin: Warm, dry. Const: Vital Signs, click to edit/add: Vital Signs - 24 hr 07/25/23 16:23 07/25/23 16:23 07/25/23 19:00 Temperature 98.4 F 98.7 F Pulse Rate [Pulse Oximeter] 71 71 65 Respiratory Rate 18 18 18 Blood Pressure [Le ft Arm] Blood Pressure [Ri ght Arm] 163/89 H 186/108 H Pulse Oximetry 94 95 Oxygen Delivery Me thod Room Air Room Air 07/25/23 23:00 07/25/23 23:00 07/26/23 03:00 Temperature 98.1 F 98.1 F Pulse Rate [Pulse Oximeter] 73 67 Respiratory Rate 18 18 18 Blood Pressure [Le ft Arm] Blood Pressure [Ri ght Arm] 172/108 H 162/86 H Pulse Oximetry 95 93 Oxygen Delivery Nj thod Room Air Room Air 07/26/23 07:00 07/26/23 07:00 07/26/23 12:00 Temperature 96.9 F L 97.7 F Pulse Rate [Pulse Oximeter] 85 85 72 Respiratory Rate 18 18 18 Blood Pressure [Le ft Arm] 171/107 H 151/93 H Blood Pressure [Ri ght Arm] Pulse Oximetry 94 93 Oxygen Delivery Nj thod Room Air Room Air Labs Labs: Laboratory Results - last 24 hr 07/26/23 06:23 Sodium 136 Potassium 3.3 L Chloride 101 Carbon Dioxide 26 Anion Gap 9 BUN 19 Creatinine 1.2 Estimated Creat Clear 49.00 Estimated GFR 60 Glucose 97 Calcium 8.8
[2023-07-26 19:14] VITALS: BP 185/94; PULSE 73; RESP 16; TEMP 36.7; O2SAT 95
[2023-07-26] MEDS: ENOXAPARIN 40 MG/0.4 ML INJ SUBCUT (20:43)
[2023-07-26] MEDS: QUETIAPINE 25 MG TABLET PO (20:43)
[2023-07-26] MEDS: dilTIAZem 120 MG CAP.ER.24H PO (20:43)
[2023-07-26] MEDS: MELATONIN 3 MG TABLET PO (20:48)
[2023-07-26 23:00] VITALS: PULSE 70; RESP 16; RESP 18
--- NOTE | 2023-07-26 23:52 | PC.NURSE ---
Shift [id number]- Patient denies pain throughout shift. He is up with A/1, SBA. Appetite intact. Remains on RA. Occasional cough noted.
--- NOTE | 2023-07-26 23:57 | PC.NURSE ---
Patient IV leaky- removed. ok to leave out.
[2023-07-27 01:10] VITALS: BP 188/108; PULSE 71; RESP 16; TEMP 36.4; O2SAT 94
[2023-07-27 03:00] VITALS: BP 165/104; PULSE 70; RESP 18; TEMP 36.6; O2SAT 94
--- NOTE | 2023-07-27 05:21 | PC.NURSE ---
SHIFT NOTE 23-07: Pt cooperative, A&O. Denies pain, SOB, CP, N&V. Up 1 assist with a walker to the BR. Oxygen saturations >90% on RA. Afebrile.
[2023-07-27 07:34] LABS: Chloride* 101 mmol/L (96-114); Potassium* 3.4 mmol/L (3.6-5.1); Sodium* 131 mmol/L (135-149)
[2023-07-27 07:36] LABS: Creatinine* 1.1 mg/dL (0.5-1.5); Est. Creatinine Clearance* 53.46; Estimated Glomerular Filt Rate 67 ml/min
[2023-07-27 07:37] LABS: Anion Gap 2 mEq/L (7-15); Blood Urea Nitrogen* 20 mg/dL (7-30); Calcium* 8.8 mg/dL (8.4-10.6); Carbon Dioxide* 28 mmol/L (20-32); Glucose* 104 mg/dL (60-115)
[2023-07-27 08:05] VITALS: BP 191/103; PULSE 69; RESP 20; TEMP 36.4; O2SAT 95
[2023-07-27] MEDS: POTASSIUM CHLORIDE 10 MEQ CAPSULE ER 20 MEQ PO ×2 (10:23→17:38)
[2023-07-27] MEDS: hydroCHLOROthiazide 25 MG TABLET PO (10:23)
[2023-07-27] MEDS: POTASSIUM CHLORIDE 10 MEQ CAPSULE ER 40 MEQ PO (13:49)
[2023-07-27 14:00] VITALS: BP 185/101; PULSE 65; RESP 96; TEMP 36.3; O2SAT 96
[2023-07-27 16:10] VITALS: BP 184/114; PULSE 69; RESP 18; TEMP 36.8; O2SAT 95
--- NOTE | 2023-07-27 16:17 | PC.NURSE ---
Pt has difficulty getting up from his chair and out of bed, encouraged use of trapeze to shift his weight and reposition himself in bed. Dr. Barlow aware of elevated blood pressures. Pt takes his pills with applesauce. Covid precautions continue. Teaching with his 2 brothers r/to enhanced precautions and rationale for this procedure. Report to Lori Narayan RN for evening shift.
--- NOTE | 2023-07-27 16:49 | PC.SOCIAL ---
Received a phone call from Elma Haddad (supervisor steel division at [facility]). Elma informs that pt is from memory care and may return over the weekend if he is no more than a 1 assist with transfers and nursing will need to complete a nurse to nurse with [facility] at [phone], prior to pt's discharge to ensure that [facility] can meet pt's needs.
--- NOTE | 2023-07-27 16:53 | PC.SOCIAL ---
Received a phone call from Elma Haddad (cinema or theatre manager, [facility]). Elma informs that pt is in the independent living. Pt is required to be independent to return to [facility] over the weekend. If pt requires an increase in services, pt will have to wait until Sunday to open services.
--- NOTE | 2023-07-27 16:57 | PM.IMPN1 ---
Progress Note: A&P Assessment and plan (1) COVID-19: Problem details: This appears to be the cause of his cough, fever, loss of appetite and weakness. Not currently requiring oxygen supplementation. UC/BC NGTD IV fluids completed, continue to encourage oral intake Discussed Paxlovid with pharmacy. As patient is on diltiazem, Puzzle Assembler 1.2, would not recommend starting this medication. PT/OT for weakness environmental services attendant reports patient able to return to independent living at [facility] without completing full quarantine when medically stable. Would have to order for additional services if needed. 07/26: Patient encouraged to continue increasing strength and ambulation, good oral intake, with plan to return to [facility]. 07/27: Much closer to baseline today than previously. If maintains the same or improves, may possibly be discharged in the next 24 hours. Status: Acute (2) Hypertension: Problem details: Continue diltiazem and hydrochlorothiazide Status: Chronic (3) Mild cognitive impairment: Problem details: Monitor for acute delirium, inappropriate behaviors reported- no reports since 07/24 Status: Chronic (4) Electrolyte abnormality: Problem details: -mild hyponatremia, resolved -mild hypokalemia, potassium 3.3, continue or replacement, continue to monitor Status: Acute Plan 1. Reviewed impression with patient. Answered his questions. 2. He has agree with above stated plans and recommendations. Time Spent With Patient Total time spent: 35 minutes Subjective Date Seen: 07/27/23 Interval history: Hospital day 5. Slowly improving in strength. Denies dyspnea at rest, paroxysmal nocturnal dyspnea, orthopnea. Denies chest heaviness, pressure, tightness, or pain. Tells me he is about 75% improved. Exam Narrative: Exam Narrative: Appears comfortable and in no acute distress. Vision and hearing are adequate. Alert and oriented to self, place, time, situation. Not hypoxic. Lungs are clear to auscultation. Heart tones with regular rhythm. No focal motor neurologic deficits. Still weak requiring assist. Skin is intact. Const: Vital Signs, click to edit/add: Vital Signs - 24 hr 07/26/23 19:14 07/26/23 23:00 07/26/23 23:00 Temperature 98.1 F Pulse Rate [Pulse Oximeter] 73 70 Respiratory Rate 16 16 18 Blood Pressure [Le ft Arm] Blood Pressure [Ri ght Arm] 185/94 H Pulse Oximetry 95 Oxygen Delivery Me thod Room Air 07/27/23 03:00 07/27/23 08:05 07/27/23 14:00 Temperature 98 F 97.5 F L 97.4 F L Pulse Rate [Pulse Oximeter] 70 69 65 Respiratory Rate 18 20 96 H Blood Pressure [Le ft Arm] 165/104 H Blood Pressure [Ri ght Arm] 191/103 H 185/101 H Pulse Oximetry 94 95 96 Oxygen Delivery Me thod Room Air Room Air Room Air 07/27/23 16:10 Temperature 98.2 F Pulse Rate [Pulse Oximeter] 69 Respiratory Rate 18 Blood Pressure [Le ft Arm] Blood Pressure [Ri ght Arm] 184/114 H Pulse Oximetry 95 Oxygen Delivery Me thod Room Air Documenting provider has reviewed patient's vital signs: yes Labs Labs: Laboratory Results - last 24 hr 07/27/23 06:55 Sodium 131 L Potassium 3.4 L Chloride 101 Carbon Dioxide 28 Anion Gap 2 L BUN 20 Creatinine 1.1 Estimated Creat Clear 53.46 Estimated GFR 67 Glucose 104 Calcium 8.8
[2023-07-27] MEDS: SENNOSIDES/DOCUSATE TABLET PO (17:37)
[2023-07-27 19:05] VITALS: BP 189/101; PULSE 69; RESP 16; TEMP 36.4; O2SAT 96
[2023-07-27] MEDS: ENOXAPARIN 40 MG/0.4 ML INJ SUBCUT (20:31)
[2023-07-27] MEDS: dilTIAZem 120 MG CAP.ER.24H PO (20:31)
[2023-07-27] MEDS: QUETIAPINE 25 MG TABLET PO (20:32)
[2023-07-27] MEDS: MELATONIN 3 MG TABLET PO (20:32)
--- NOTE | 2023-07-27 23:08 | PC.NURSE ---
Shift [id number]- Patient denies pain throughout shift. He is up with walker, gait belt, SBA/ A/1. Occasional cough. He is reminded to call for assistance to get up to bathroom, bed alarm engaged. Expresses dislike of potassium pills, RN explained necessity. BP also remains elevated- MD aware.
[2023-07-28 03:30] VITALS: BP 178/94; PULSE 66; RESP 16; TEMP 36.4; O2SAT 95
--- NOTE | 2023-07-28 05:24 | PC.NURSE ---
Pt alert and oriented x3. Afebrile. On room air. Pt denies pain, chest pain, and N/V. Pt reports SOB and it is noted with exertion. Pt is up A1 with walker and gait belt. Pt is voiding, tolerating reg diet, and slept throughout most of night. Night uneventful.
[2023-07-28 07:00] VITALS: BP 183/141; PULSE 65; RESP 16; TEMP 36.5; O2SAT 98
[2023-07-28 07:33] LABS: Chloride* 102 mmol/L (96-114); Sodium* 139 mmol/L (135-149)
[2023-07-28 07:34] LABS: Potassium* 3.6 mmol/L (3.6-5.1)
[2023-07-28 07:36] LABS: Anion Gap 11 mEq/L (7-15); Blood Urea Nitrogen* 18 mg/dL (7-30); Carbon Dioxide* 26 mmol/L (20-32); Creatinine* 0.9 mg/dL (0.5-1.5); Est. Creatinine Clearance* 58.81; Estimated Glomerular Filt Rate 85 ml/min
[2023-07-28 07:37] LABS: Calcium* 9.2 mg/dL (8.4-10.6); Glucose* 103 mg/dL (60-115)
[2023-07-28] MEDS: POTASSIUM CHLORIDE 10 MEQ CAPSULE ER 20 MEQ PO (07:57)
[2023-07-28] MEDS: hydroCHLOROthiazide 12.5 MG CAPSULE PO (08:02)
[2023-07-28 11:00] VITALS: BP 160/113; PULSE 61; RESP 16; TEMP 36.5; O2SAT 95
--- NOTE | 2023-07-28 13:02 | PC.NURSE ---
Elevated BP, otherwise VSS. RA. Denies pain. Tolerating regular diet, 1000 cc in. Frequency, voided x4. BM x1. Up with SBA, walker. No PIV. To discharge shortly. Jennifer Bravo RN
--- NOTE | 2023-07-28 15:14 | PC.NURSE ---
Pt disharge education complete, no IV to be removed. RN assisted pt to w/c and walked out to brother's car. All belongings sent with pt, prescriptions sent to pharmacy. He will return to independent living at [facility]. Jennifer Bravo RN
--- NOTE | 2023-08-02 16:31 | P.DS_ITS ---
DS: Providers Provider Date Seen: 07/28/23 Date of admission: 07/25/23 09:54 Primary care physician: Mir Kang MD Admitting Clinician: Rishi Barlow MD Consults: 07/23/23 23:28 Consult to Occupational Therapy [CONS] Routine Comment: Reason(s) for OT Consult:: Evaluate and Treat Any Restrictions?:: No Restrictions Consult to Mental Telepathist [CONS] Routine Comment: Reason for Consult:: Discharge Planning Needs 07/23/23 23:29 Consult to Physical Therapy [CONS] Routine Comment: Reason(s) for PT Consult:: Evaluate and Treat Any Restrictions?:: No Restrictions Attending Physician on discharge: Darrell Cunha MD Date of Discharge: 07/28/23 DS: Diagnosis Discharge Diagnosis (1) COVID-19: Status: Acute Problem details: This appears to be the cause of his cough, fever, loss of appetite and weakness. Not currently requiring oxygen supplementation. UC/BC NGTD IV fluids completed, continue to encourage oral intake Discussed Paxlovid with pharmacy. As patient is on diltiazem, Test Lead 1.2, would not recommend starting this medication. PT/OT for weakness marketing services rep reports patient able to return to independent living at [facility] without completing full quarantine when medically stable. Would have to order for additional services if needed. 07/26: Patient encouraged to continue increasing strength and ambulation, good oral intake, with plan to return to [facility]. 07/27: Much closer to baseline today than previously. If maintains the same or improves, may possibly be discharged in the next 24 hours. (2) Weakness: Status: Acute (3) Electrolyte abnormality: Status: Acute Problem details: -mild hyponatremia, resolved -mild hypokalemia, potassium 3.3, continue or replacement, continue to monitor (4) Hypertension: Status: Chronic Problem details: Continue diltiazem and hydrochlorothiazide (5) Mild cognitive impairment: Status: Chronic Problem details: Monitor for acute delirium, inappropriate behaviors reported- no reports since 07/24 (6) Unsteady gait: Status: Chronic (7) Panic attack: Status: Acute (8) Supraventricular tachycardia: Status: Chronic DS: Summary Hospital Course Hospital Course: Patient presented with profound weakness and was found to have COVID-19. Treated with remdesivir. Continue with supportive efforts. Improved. Discharged. Status at Discharge Functional status at discharge: uses cane/walker Overall status at discharge: patient is progressing back to baseline Time Spent with Patient Time attestation: Total time spent providing and/or coordinating discharge services: Time spent: Greater than 30 minutes Exam Narrative: Exam Narrative: Appears comfortable and in no acute distress. Vision and hearing are adequate. Alert and oriented to self, place, time, situation. Not hypoxic. Lungs are clear to auscultation. Heart tones with regular rhythm. No focal motor neurologic deficits. Still weak requiring assist. Skin is intact. DS: Data Imaging Chest x-ray: Attestation: I have reviewed the pertinent imaging results. Radiologist's impression: IMPRESSION: 1. The cardiac silhouette is moderately enlarged but may be accentuated by the portable technique. Discharge Plan Discharge Disposition: Home, Self-Care Date of Admission: 07/25/23 09:54 Attending Provider on Discharge: Darrell Cunha Primary Care Provider: Mir Kang Condition: Stable Anticipated Discharge Date/Time: 07/28/23 13:30 Discharge Medications: New hydrochlorothiazide 12.5 mg Capsule 12.5 mg PO DAILY 30 Days Qty: 30 1RF acetaminophen 325 mg capsule 650 mg PO QID PRNQty: 100 0RF potassium chloride [Klor-Con M20] 20 mEq tablet,ER particles/crystals 20 meq PO DAILY Qty: 30 2RF Continued diltiazem HCl 120 mg capsule,extended release 24 hr 120 mg PO QDAY Qty: 90 3RF quetiapine 25 mg tablet 25 mg PO .Bedtime as needed PRN (Reason: anxiety) Qty: 90 0RF Rx Instructions: Takes 12.5mg Discontinued hydrochlorothiazide 25 mg tablet 25 mg PO QDAY Qty: 90 3RF Discharge Orders: Discharge Order (Routine); Ordered 07/28/23 Ordered By: Darrell Cunha Patient Education: Hydrochlorothiazide (By mouth), Potassium Chloride (By mouth), COVID-19 (Coronavirus Disease 2019) (DC), Face Coverings (Masks) and COVID-19 (DC) Additional Instructions: Physical Therapy to eval and treat for generalized weakness, safe transfers (Order faxed to [facility] [phone]) Activity Level: Activity as Tolerated Discharge Diet: Regular Follow Up Appointments: [facility] [Outside] (Patient being discharged to [facility]) Mir Kang MD [Primary Care Provider] - (Follow-up with PCP in 5-10 days) Forms: LookTracker Info Instructions
== END 2023-07-28 14:50 | disposition home or self-care (01) | DRG 178 ==
LOC: ED 07-24 00:01 → MEDSURG 07-24 00:02
PROVIDERS: Physician Assistant; Admitting Provider Family Medicine; Emergency Provider Emergency Medicine; PCP Internal Medicine; Visit Provider Family Medicine
DX: U07.1 COVID-19 (principal); E87.1 Hypo-osmolality and hyponatremia; I47.10 Supraventricular tachycardia, unspecified; R53.1 Weakness; R05.9 Cough, unspecified; R50.9 Fever, unspecified; I10 Essential (primary) hypertension; G31.84 Mild cognitive impairment of uncertain or unknown etiology; E87.6 Hypokalemia; R26.89 Other abnormalities of gait and mobility; F41.0 Panic disorder [episodic paroxysmal anxiety]
CPT/HCPCS: 36415; 51798; 71045; 80048; 80076; 81001; 83605; 83735; 84443; 84484; 85025; 85379; 86140; 87040; 87086; 87186; 87631; 93005; 94761; 97110; 97112; 97116; 97162; 97166; 97535; 99284; 99285; A9270; G0378; J0360; J1650; J2405; J3370; J7050; J7120

== ENCOUNTER 2024-09-23 11:27 | Observation (INO) | payer MEDICARE, BC, SELFPAY ==
--- OUTSIDE RECORDS SUMMARY | 2024-09-23 11:30 | XMS_ITS | Clinical Summary ---
Author Organization 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 Gender Identity Not on file Sexual Orientation Not on file Plan of Treatment Health Maintenance Due Date Last Done Comments Tdap 1952 Depression screening for age 12+ 1953 BMI (ht and wt on same day) for age 18+ 1959 Tetanus booster 1961 Pneumococcal series for age 50+ (1 of 1 - PCV) 991 Zoster (shingles) series for age 50+ (1 of 2) 04/20/19 91 RSV vaccine for adults or pr egnancy (1 - 1-dose 75+ series) 2016 COVID-19 vaccine series (2023- season) 4 Influenza for age 65+ 05/11/2024 Insurance * Guarantor: YVAN Frausto Account Type Relation to Patient Date of Phone Billing Address Personal/Family Self 1940 [address] [place] [address] [place] ONLY Care Teams Cost And Sales Record Supervisor Relationship Specialty Start Date End Date Laureano Baron MD [address] [place] [address] PCP - General Family Practice 09/30/20
[2024-09-23 11:56] VITALS: BP 100/53; PULSE 98; RESP 16; TEMP 36.6; O2SAT 96; BMI 33.2
[2024-09-23 11:57] LABS: Appearance Urine Clear (Clear); Bilirubin Urine Negative (Negative); Blood Urine Trace-intact (Negative); Color Urine Yellow (Yellow); Glucose Urine Negative (Negative); Ketones Urine Negative (Negative); Leukocyte Esterase Urine Negative (Negative); Nitrite Urine Negative (Negative); Protein Urine 2+ (Negative)
[2024-09-23 12:11] LABS: RBC Urine 0-2 (0-2); WBC Urine 0-2 (0-5)
--- NOTE | 2024-09-23 12:13 | CRLHL7_ITS ---
For Patients: As a result of the Century Cures Act, medical imaging exams and procedure reports are released immediately into your electronic medical record. You may view this report before your referring provider. If you have questions, please contact your health care provider. INDICATION: Cough, weakness. TECHNIQUE: Chest 1 views. COMPARISON: None FINDINGS: Tubes and devices: None. Lungs: Lungs are clear. No sign of infiltrate or mass. Pleura: No pleural effusion. No pneumothorax. Heart: Heart size and vasculature are normal in caliber and appearance. Sheri and Mediastinum: No enlargement. Bones and soft tissues: No significant findings. IMPRESSION: Unremarkable chest. Dictated by Eliceo Villegas MD @ 09/23/2024 1:00:02 PM (Electronically Signed)
--- NOTE | 2024-09-23 12:21 | ED_ITS ---
HPI - General Adult General Date Seen: 09/23/24 Chief complaint: Weakness Stated complaint: weak/headache, sorethroat/cough Time Seen by Provider: 09/23/24 12:01 History of Present Illness HPI narrative: Patient is an 84-year-old male who lives independently at [facility]. He comes in today because of feeling poorly over the past couple of days. He tells me that for the past week he has had a little bit of nausea that he has not had any vomiting. A couple of days ago he developed a sore throat which she says was pretty bad but now feels largely improved. He has had some coughing, and has felt weak in the legs. He has not had a fever that he knows of. He denies chest or abdominal pain. He has not been short of breath. Related Data Home Medications ?Medication ?Instructions ?Recorded ?Confirmed diltiazem HCl 120 mg 120 mg PO DAILY 09/23/24 09/23/24 capsule,extended release 24 hr Previous Rx's ?Medication ?Instructions ?Recorded hydrochlorothiazide 12.5 mg capsule 12.5 mg PO DAILY 30 days #90 caps 03/18/24 quetiapine 25 mg tablet 25 mg PO QHS PRN anxiety #90 tabs 09/18/24 nirmatrelvir 150 mg-ritonavir 100 See Rx Instructions PO .COMPLEX 09/23/24 mg tablets in a dose pack #20 ea (Paxlovid) Allergies Allergy/AdvReac Type Severity Reaction Status Date / Time No Known Drug Allergies Allergy Verified 09/23/24 12:01 Review of Systems Status of ROS: Reports: 10 or more systems reviewed and unremarkable except as noted in History and below [facility] Medical History Back pain ?M54.9 - Dorsalgia, unspecified (ICD-10) Back pain as manifestation of blood transfusion reaction ?T80.89XA - Other complications following infusion, transfusion and therapeutic injection, initial encounter (ICD-10) ?M54.9 - Dorsalgia, unspecified (ICD-10) Unsteady gait ?R26.81 - Unsteadiness on feet (ICD-10) Supraventricular tachycardia ?I47.1 - Supraventricular tachycardia (ICD-10) Panic attack ?F41.0 - Panic disorder [episodic paroxysmal anxiety] (ICD-10) Nausea and vomiting ?R11.2 - Nausea with vomiting, unspecified (ICD-10) Mild cognitive impairment ?G31.84 - Mild cognitive impairment, so stated (ICD-10) Leukocytosis ?D72.829 - Elevated white blood cell count, unspecified (ICD-10) Hypertension ?I10 - Essential (primary) hypertension (ICD-10) High serum lactic acid ?R79.89 - Other specified abnormal findings of blood chemistry (ICD-10) Generalized anxiety disorder ?F41.1 - Generalized anxiety disorder (ICD-10) Gastroenteritis ?K52.9 - Noninfective gastroenteritis and colitis, unspecified (ICD-10) Excessive cerumen in ear canal ?H61.20 - Impacted cerumen, unspecified ear (ICD-10) Epigastric pain ?R10.13 - Epigastric pain (ICD-10) Due for screening ?Z13.9 - Encounter for screening, unspecified (ICD-10) Dehydration ?E86.0 - Dehydration (ICD-10) Ataxia ?R27.0 - Ataxia, unspecified (ICD-10) Anterior dislocation of right shoulder ?S43.014A - Anterior dislocation of right humerus, initial encounter (ICD-10) Acute gastroenteritis ?K52.9 - Noninfective gastroenteritis and colitis, unspecified (ICD-10) Excessive cerumen in both ear canals ?H61.23 - Impacted cerumen, bilateral (ICD-10) Social History Narrative: Patient lives alone at [facility]. He is originally from [facility]. He lived in [place] and [facility] and worked in Education administration. His brother Ebenezer from [place], [place] is his healthcare power of tax associate attorney. Code status is DNR. He indicates that he would not want to be intubated if he developed respiratory failure from COVID. At [facility] he lives independently but does get meals in the dining room. He has never been a smoker. He does not drink alcohol. What is your current living situation?: I presently have a place to live Problems where you live: no known problems Problems where you live details: na In the past 12 months, utilities in danger of being shut off: no In past 12 months, lack of transportation kept you from medical appts, meetings, work, or getting things needed for daily living: no In the past 12 mos, have been you worried that your food would run out before you had money to buy more?: never true In the past 12 mos, the food you bought just didn't last and you didn't have money to buy more?: never true Highest level of school completed/degree received: Master's degree Smoking Status: Never smoker How often do you have a drink containing alcohol: never AUDIT-C Alcohol total score: 0 Non-prescribed substance use: denies use How often does anyone, including family, friends and others, physically hurt you : never How often does anyone, including family, friends and others, insult or talk down to you: never How often does anyone, including family, friends and others, threaten you with harm: never How often does anyone, including family, friends and others, scream or curse at you: never service: No Exam Narrative: Exam Narrative: Vital signs reviewed In general, alert, nontoxic elderly male. Head: Normocephalic, atraumatic. Eyes: Sclera clear. Pupils equal and reactive. ENT: Mucous membranes a little bit dry. Neck: Supple without adenopathy. Heart: Borderline tachycardic, irregular. Lungs: Lungs are clear, no increased work of breathing, no crackles or wheezes. Abdomen: Soft, nontender to palpation. Extremities: Well perfused, pulses intact. No significant edema. Neurologic: Alert, conversant. Speech fluent, face symmetric. Moves all extremities equally. Strength is 5 of 5 in bilateral lower extremities, sensation intact to light touch. Skin: Warm, dry well perfused. Affect: Normal. Const: Vital Signs, click to edit/add: Vital Signs - 24 hr 09/23/24 11:56 09/23/24 13:37 Temperature 97.8 F 97.9 F Pulse Rate [Pulse Oximeter] 98 69 Respiratory Rate 16 18 Blood Pressure [Ri ght Upper Arm] 100/53 L 151/77 H Pulse Oximetry 96 95 Oxygen Delivery Me thod Room Air Room Air Course Course ED Course: Diagnostic considerations fairly broad at this time and include viral infection such as COVID or influenza, pneumonia, metabolic derangement, cardiac arrhythmia, congestive heart failure, among others. Will start with labs, chest x-ray. Urinalysis was obtained in triage and aside from 2+ protein is unremarkable. No red cells or white cells. Viral swab is pending. He had an initial blood pressure checked in triage that was recorded at 100 systolic which would be significantly low for him. Immediately after that he had a blood pressure in the room of 175 systolic, repeat was 167 systolic. He had a sweater on at the time of his triage blood pressure and perhaps this was falsely low. He does have an irregular heart beat, will get an EKG. He feels like he may have had atrial fibrillation in the past although he is not anticoagulated and it is not on his problem list for us. Thus far, evaluation shows a normal white blood cell count of 10.3, he has a left shift with 82% neutrophils. Normal hemoglobin. Metabolic panel LFTs CRP pending. UA is negative. Viral swab is notable for a positive COVID test other viruses are negative. EKG did show a sinus rhythm with marked sinus arrhythmia. He has a left bundle-branch block which is new compared to July of 2023. That see only EKG we have. His troponin however is negative at 0.02. His symptoms are likely attributable to COVID, but will get a 2nd troponin and make sure that that is remaining negative. Based on level of weakness he will likely need to be admitted to the hospital for care until he is feeling a little stronger. I ordered Paxlovid, will hold his quetiapine when he is on the Paxlovid. He says he has family who can pick this up for him. Admitted to the hospitalist service. Vital Signs Vital signs: Initial Vital Signs Temperature 97.8 F 09/23/24 11:56 Temperature Source Temporal Artery Scan 09/23/24 11:56 Pulse Rate 98 09/23/24 11:56 Pulse Rhythm Irregular 09/23/24 11:56 Respiratory Rate 16 09/23/24 11:56 Blood Pressure 100/53 L 09/23/24 11:56 Blood Pressure Mean 68 L 09/23/24 11:56 Blood Pressure Position Sitting 09/23/24 11:56 Pulse Oximetry 96 09/23/24 11:56 Oxygen Delivery Method Room Air 09/23/24 11:56 Vital Signs Temperature 97.8 F 09/23/24 11:56 Pulse Rate 98 09/23/24 11:56 Respiratory Rate 16 09/23/24 11:56 Blood Pressure 100/53 L 09/23/24 11:56 Pulse Oximetry 96 09/23/24 11:56 Oxygen Delivery Method Room Air 09/23/24 11:56 Temperature 97.9 F 09/23/24 13:37 Pulse Rate 69 09/23/24 13:37 Respiratory Rate 18 09/23/24 13:37 Blood Pressure 151/77 H 09/23/24 13:37 Pulse Oximetry 95 09/23/24 13:37 Oxygen Delivery Method Room Air 09/23/24 13:37 Medications Administered Medications: Discontinued Medications Generic Name Dose Route Start Last Admin Trade Name Freq PRN Reason Stop Dose Admin Sodium Chloride 500 mls @ 500 mls/hr 09/23/24 12:13 09/23/24 12:56 0.9 % Sodium Chloride 500 Ml IV 09/23/24 13:12 500 mls/hr .Q1H ONE Administration Medical Decision Making Lab Data Labs: Lab Results 09/23/24 09/23/24 09/23/24 Range/Units 11:33 12:05 12:14 WBC (4.50-11.00) K/uL RBC (4.30-5.90) m/uL Hgb (13.5-17.5) gm/dL Hct (37.0-53.0) % MCV (80-100) fL MCH (26-34) pg MCHC (32-36) gm/dL RDW Coeff of Danii (11.5-15.5) % Plt Count (140-440) K/uL Neut % (Auto) (42.0-72.0) % Lymph % (Auto) (20-44) % [place] % (Auto) (0.0-11.0) % Eos % (Auto) (0.0-7.0) % Baso % (Auto) (0.0-3.0) % Neut # (Auto) (1.7-7.0) K/uL Lymph # (Auto) (0.90-2.90) K/uL [place] # (Auto) (0.00-0.90) K/UL Eos # (Auto) (0.00-0.50) K/uL Baso # (Auto) (0.00-0.30) K/uL Abs Immat Gran (auto) (0.00-0.30) K/uL Imm/Tot Granulo (auto) % Sodium (135-149) mmol/L Potassium (3.6-5.1) mmol/L Chloride (96-114) mmol/L Carbon Dioxide (20-32) mmol/L Anion Gap (7-15) mEq/L BUN (7-30) mg/dL Creatinine (0.5-1.5) mg/dL Estimated Creat Clear Estimated GFR ml/min Glucose (60-115) mg/dL Lactate (0.5-1.9) mmol/L Calcium (8.4-10.6) mg/dL Total Bilirubin (0.1-1.5) mg/dL Direct Bilirubin (0.0-0.5) mg/dL AST (12-35) U/L ALT (4-50) U/L Alkaline Phosphatase (40-150) U/L C-Reactive Protein (0.5-1.0) mg/dL Total Protein (6.0-8.3) g/dL Albumin (3.3-5.0) g/dL Urine Color Yellow (Yellow) Urine Appearance Clear (Clear) Urine pH 8.0 (5.0-8.5) Ur Specific [place] 1.020 (1.000-1.030) Urine Protein 2+ A (Negative) Urine Glucose (UA) Negative (Negative) Urine Ketones Negative (Negative) Urine Blood Trace-intact A (Negative) Urine Nitrite Negative (Negative) Urine Bilirubin Negative (Negative) Urine Urobilinogen 2.0 A (0.2-1.0) Ur Leukocyte Esterase Negative (Negative) Urine RBC 0-2 (0-2) Urine WBC 0-2 (0-5) Urine WBC Clumps None (None) Ur Squamous Epith Cells None (None-Few) Urine Bacteria None (None) SARS-CoV-2 (PCR) POSITIVE SARS-CoV-2 A (Negative) Influenza Type A (PCR) Negative PCR FLU A (Negative) Influenza Type B (PCR) Negative PCR FLU B (Negative) RSV (PCR) Negative PCR RSV (Negative) POC Troponin I 0.02 (0.01-0.04) ng/ml 09/23/24 Range/Units 12:25 WBC 10.32 (4.50-11.00) K/uL RBC 5.28 (4.30-5.90) m/uL Hgb 16.2 (13.5-17.5) gm/dL Hct 46.2 (37.0-53.0) % MCV 88 (80-100) fL MCH 31 (26-34) pg MCHC 35 (32-36) gm/dL RDW Coeff of Danii 12.8 (11.5-15.5) % Plt Count 205 (140-440) K/uL Neut % (Auto) 81.8 H (42.0-72.0) % Lymph % (Auto) 9.1 L (20-44) % [place] % (Auto) 8.7 (0.0-11.0) % Eos % (Auto) 0.0 (0.0-7.0) % Baso % (Auto) 0.3 (0.0-3.0) % Neut # (Auto) 8.40 H (1.7-7.0) K/uL Lymph # (Auto) 0.90 (0.90-2.90) K/uL [place] # (Auto) 0.90 (0.00-0.90) K/UL Eos # (Auto) 0.00 (0.00-0.50) K/uL Baso # (Auto) 0.03 (0.00-0.30) K/uL Abs Immat Gran (auto) 0.01 (0.00-0.30) K/uL Imm/Tot Granulo (auto) 0.1 % Sodium 136 (135-149) mmol/L Potassium 3.4 L (3.6-5.1) mmol/L Chloride 104 (96-114) mmol/L Carbon Dioxide 20 (20-32) mmol/L Anion Gap 12 (7-15) mEq/L BUN 17 (7-30) mg/dL Creatinine 1.2 (0.5-1.5) mg/dL Estimated Creat Clear 46.64 Estimated GFR 60 ml/min Glucose 151 H (60-115) mg/dL Lactate 1.7 (0.5-1.9) mmol/L Calcium 9.1 (8.4-10.6) mg/dL Total Bilirubin 1.6 H (0.1-1.5) mg/dL Direct Bilirubin 0.5 (0.0-0.5) mg/dL AST 23 (12-35) U/L ALT 24 (4-50) U/L Alkaline Phosphatase 117 (40-150) U/L C-Reactive Protein 5.7 H (0.5-1.0) mg/dL Total Protein 8.3 (6.0-8.3) g/dL Albumin 4.6 (3.3-5.0) g/dL Urine Color (Yellow) Urine Appearance (Clear) Urine pH (5.0-8.5) Ur Specific [place] (1.000-1.030) Urine Protein (Negative) Urine Glucose (UA) (Negative) Urine Ketones (Negative) Urine Blood (Negative) Urine Nitrite (Negative) Urine Bilirubin (Negative) Urine Urobilinogen (0.2-1.0) Ur Leukocyte Esterase (Negative) Urine RBC (0-2) Urine WBC (0-5) Urine WBC Clumps (None) Ur Squamous Epith Cells (None-Few) Urine Bacteria (None) SARS-CoV-2 (PCR) (Negative) Influenza Type A (PCR) (Negative) Influenza Type B (PCR) (Negative) RSV (PCR) (Negative) POC Troponin I (0.01-0.04) ng/ml Imaging Data Chest x-ray: Attestation: I have reviewed the pertinent imaging results. Radiologist's impression: Patient: YVAN HOOD Facility: [facility] Site . Site : 1940 Study: XRay-Chest 1 VIEW PORTABLE-09/23/2024 12:56:17 PM Ordering Physician: Bert Ansari Final Report: INDICATION: Cough, weakness. TECHNIQUE: Chest 1 views. COMPARISON: None FINDINGS: Tubes and devices: None. Lungs: Lungs are clear. No sign of infiltrate or mass. Pleura: No pleural effusion. No pneumothorax. Heart: Heart size and vasculature are normal in caliber and appearance. Sheri and Mediastinum: No enlargement. Bones and soft tissues: No significant findings. IMPRESSION: Unremarkable chest. Dictated by Yvan Villegas MD @ 09/23/2024 1:00:02 PM Discharge Plan Discharge Clinical Impression: COVID-19, Weakness Patient Disposition: Admitted As Observation
[2024-09-23 12:35] LABS: Lactate Sepsis w/Reflex* 1.7 mmol/L (0.5-1.9)
--- OUTSIDE RECORDS SUMMARY | 2024-09-23 12:35 | XMS_ITS | Clinical Summary ---
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
[2024-09-23 12:38] LABS: Basophils Absolute Auto 0.03 K/uL (0.00-0.30); Basophils Percent Auto 0.3 % (0.0-3.0); Hematocrit 46.2 % (37.0-53.0); Hemoglobin* 16.2 gm/dL (13.5-17.5); Immature Granulocytes Abs Auto 0.01 K/uL (0.00-0.30); Immature Granulocytes Pct Auto 0.1 %; Lymphocytes Percent Auto 9.1 % (20-44); Mean Corpuscular HGB Conc 35 gm/dL (32-36); Mean Corpuscular Hemoglobin 31 pg (26-34); Mean Corpuscular Volume 88 fL (80-100); Monocytes Percent Auto 8.7 % (0.0-11.0); Neutrophils Percent Auto 81.8 % (42.0-72.0); Platelet Count* 205 K/uL (140-440); RDW Coefficient of Variation % 12.8 % (11.5-15.5); Red Blood Count 5.28 m/uL (4.30-5.90); White Blood Count* 10.32 K/uL (4.50-11.00)
[2024-09-23 12:40] LABS: Troponin, Point-of-Care* 0.02 ng/ml (0.01-0.04)
[2024-09-23 12:41] LABS: Slide Review Reflex No
[2024-09-23 12:53] LABS: Chloride* 104 mmol/L (96-114)
[2024-09-23 12:54] LABS: Albumin* 4.6 g/dL (3.3-5.0); Potassium* 3.4 mmol/L (3.6-5.1); Sodium* 136 mmol/L (135-149)
[2024-09-23 12:56] LABS: Creatinine* 1.2 mg/dL (0.5-1.5); Est. Creatinine Clearance* 46.64; Estimated Glomerular Filt Rate 60 ml/min
[2024-09-23] MEDS: 0.9 % SODIUM CHLORIDE 500 ML 500 ML IV (12:56)
[2024-09-23 12:57] LABS: Alanine Aminotransferase* 24 U/L (4-50); Alkaline Phosphatase* 117 U/L (40-150); Anion Gap 12 mEq/L (7-15); Aspartate Amino Transferase* 23 U/L (12-35); Bilirubin Direct* 0.5 mg/dL (0.0-0.5); Bilirubin Total* 1.6 mg/dL (0.1-1.5); Blood Urea Nitrogen* 17 mg/dL (7-30); Calcium* 9.1 mg/dL (8.4-10.6); Carbon Dioxide* 20 mmol/L (20-32); Glucose* 151 mg/dL (60-115); Total Protein* 8.3 g/dL (6.0-8.3)
[2024-09-23 13:00] LABS: C Reactive Protein* 5.7 mg/dL (0.5-1.0)
[2024-09-23 13:02] LABS: PCR FLU A Negative PCR FLU A (Negative); PCR FLU B Negative PCR FLU B (Negative); PCR RSV Negative PCR RSV (Negative); SARS PCR* POSITIVE SARS-CoV-2 (Negative)
[2024-09-23 13:37] VITALS: BP 151/77; PULSE 69; RESP 18; TEMP 36.6; O2SAT 95
[2024-09-23 14:02] VITALS: BP 150/71; PULSE 67; RESP 18; TEMP 36.8; O2SAT 95; BMI 33.1
--- NOTE | 2024-09-23 14:55 | P.IMHP_ITS ---
Hospitalist- H&P: HPI History of Present Illness Date Seen: 09/23/24 Chief complaint: weak/headache, sorethroat/cough Narrative: Eliceo Frausto is a 84 year old male past medical history significant for hypertension, SVT, JOSE, insomnia, chronic back pain, unsteady gait is admitted to the medical floor from the ED for leg weakness and nausea in setting of acute COVID-19 infection. Patient reports feeling better upon arrival to floor. Received IVF in the ED, nausea has resolved, tolerating orals. No reported vomiting or diarrhea prior to arrival. Has had intermittent mild headaches, none currently. Denies dizziness. Denies chest pain or shortness of breath. Has had a dry cough. No hypoxia. Denies fevers, chills, sweats. Denies change in stools. Denies UTI symptoms. Has had generalized weakness, more so in the legs. PCP is Dr. Kang. Wishes to be DNR/DNI. Review of Systems Narrative: REVIEW OF SYSTEMS: Complete review of systems performed and negative unless otherwise stated in HPI or below. [facility] Medical History Insomnia ?G47.00 - Insomnia, unspecified (ICD-10) Back pain ?M54.9 - Dorsalgia, unspecified (ICD-10) Back pain as manifestation of blood transfusion reaction ?T80.89XA - Other complications following infusion, transfusion and therapeutic injection, initial encounter (ICD-10) ?M54.9 - Dorsalgia, unspecified (ICD-10) Unsteady gait ?R26.81 - Unsteadiness on feet (ICD-10) Supraventricular tachycardia ?I47.1 - Supraventricular tachycardia (ICD-10) Panic attack ?F41.0 - Panic disorder [episodic paroxysmal anxiety] (ICD-10) Nausea and vomiting ?R11.2 - Nausea with vomiting, unspecified (ICD-10) Mild cognitive impairment ?G31.84 - Mild cognitive impairment, so stated (ICD-10) Leukocytosis ?D72.829 - Elevated white blood cell count, unspecified (ICD-10) Hypertension ?I10 - Essential (primary) hypertension (ICD-10) High serum lactic acid ?R79.89 - Other specified abnormal findings of blood chemistry (ICD-10) Generalized anxiety disorder ?F41.1 - Generalized anxiety disorder (ICD-10) Gastroenteritis ?K52.9 - Noninfective gastroenteritis and colitis, unspecified (ICD-10) Excessive cerumen in ear canal ?H61.20 - Impacted cerumen, unspecified ear (ICD-10) Epigastric pain ?R10.13 - Epigastric pain (ICD-10) Due for screening ?Z13.9 - Encounter for screening, unspecified (ICD-10) Dehydration ?E86.0 - Dehydration (ICD-10) Ataxia ?R27.0 - Ataxia, unspecified (ICD-10) Anterior dislocation of right shoulder ?S43.014A - Anterior dislocation of right humerus, initial encounter (ICD-10) Acute gastroenteritis ?K52.9 - Noninfective gastroenteritis and colitis, unspecified (ICD-10) Excessive cerumen in both ear canals ?H61.23 - Impacted cerumen, bilateral (ICD-10) Social History Narrative: Patient lives alone at [facility]. He is originally from [place]. He lived in [place] and [facility] and worked in Education administration. His brother Ebenezer from [place], [place] is his healthcare power of medical lab specialist. Code status is DNR. He indicates that he would not want to be intubated if he developed respiratory failure from COVID. At [facility] he lives independently but does get meals in the dining room. He has never been a smoker. He does not drink alcohol. What is your current living situation?: I presently have a place to live Problems where you live: no known problems Problems where you live details: N/A In the past 12 months, utilities in danger of being shut off: no In past 12 months, lack of transportation kept you from medical appts, meetings, work, or getting things needed for daily living: no In the past 12 mos, have been you worried that your food would run out before you had money to buy more?: never true In the past 12 mos, the food you bought just didn't last and you didn't have money to buy more?: never true Highest level of school completed/degree received: Master's degree Smoking Status: Never smoker How often do you have a drink containing alcohol: never AUDIT-C Alcohol total score: 0 Non-prescribed substance use: denies use How often does anyone, including family, friends and others, physically hurt you : never How often does anyone, including family, friends and others, insult or talk down to you: never How often does anyone, including family, friends and others, threaten you with harm: never How often does anyone, including family, friends and others, scream or curse at you: never service: No Meds Home Medications and Allergies Home Medications ?Medication ?Instructions ?Recorded ?Confirmed ?Type diltiazem HCl 120 mg 120 mg PO DAILY 09/23/24 09/23/24 History capsule,extended release 24 hr Allergies Allergy/AdvReac Type Severity Reaction Status Date / Time No Known Drug Allergies Allergy Verified 09/23/24 12:01 Exam Narrative: Exam Narrative: PHYSICAL EXAM General: Pleasant, conversant, NAD HEENT: Normocephalic, atraumatic, sclera white, EOMI, oral mucosa moist Cardiovascular: RRR, S1S2. No pitting edema Pulmonary: CTA bilaterally without rhonchi, rales, expiratory wheezes. No dyspnea on room air Abdominal: Soft, nondistended, NTTP Neurological: Alert, answering questions appropriately, cranial nerves intact, no focal findings Extremities: No gross joint deformity or swelling. AROMI. Neurovascularly intact Skin: Warm, dry. Const: Vital Signs, click to edit/add: Vital Signs - 24 hr 09/23/24 11:56 09/23/24 13:37 09/23/24 14:02 Temperature 97.8 F 97.9 F 98.3 F Pulse Rate [Pulse Oximeter] 98 69 Pulse Rate [Right Radial] 67 Respiratory Rate 16 18 18 Blood Pressure [Ri ght Arm] 150/71 H Blood Pressure [Ri ght Upper Arm] 100/53 L 151/77 H Pulse Oximetry 96 95 95 Oxygen Delivery Me thod Room Air Room Air Room Air Hospitalist - H&P: Result Labs Labs: Short CBC 09/23/24 Range/Units 12:25 WBC 10.32 (4.50-11.00) K/uL Hgb 16.2 (13.5-17.5) gm/dL Hct 46.2 (37.0-53.0) % Plt Count 205 (140-440) K/uL BMP 09/23/24 12:25 Sodium 136 Potassium 3.4 L Chloride 104 Carbon Dioxide 20 BUN 17 Creatinine 1.2 Glucose 151 H Calcium 9.1 Liver Function 09/23/24 Range/Units 12:25 Total Bilirubin 1.6 H (0.1-1.5) mg/dL Direct Bilirubin 0.5 (0.0-0.5) mg/dL AST 23 (12-35) U/L ALT 24 (4-50) U/L Alkaline Phosphatase 117 (40-150) U/L Albumin 4.6 (3.3-5.0) g/dL Urine 09/23/24 Range/Units 11:33 Urine Color Yellow (Yellow) Urine Appearance Clear (Clear) Urine pH 8.0 (5.0-8.5) Ur Specific [place] 1.020 (1.000-1.030) Urine Protein 2+ A (Negative) Urine Glucose (UA) Negative (Negative) Imaging Chest x-ray: Attestation: I have reviewed the pertinent imaging results. Radiologist's impression: Tubes and devices: None. Lungs: Lungs are clear. No sign of infiltrate or mass. Pleura: No pleural effusion. No pneumothorax. Heart: Heart size and vasculature are normal in caliber and appearance. Sheri and Mediastinum: No enlargement. Bones and soft tissues: No significant findings. IMPRESSION: Unremarkable chest. Assessment and Plan Assessment and plan (1) COVID-19: Problem comment: -symptomatic with leg weakness and nausea without vomiting - both improving upon admission to floor -no hypoxia -symptomatic cares, incentive spirometry -Paxlovid sent to [facility] pharmacy for friend/family to picket labor union and bring back to hospital as not available at this facility Status: Acute (2) Weakness: Problem comment: -in setting of acute COVID infection -PT/OT consults -[employer] Laboratory Assistant for any discharge/placement needs Status: Acute (3) Nausea: Problem comment: -resolved prior to admission to floor following IVF in ED. Tolerating orals. No further IVF for now Status: Acute (4) Hypertension: Problem comment: -continue diltiazem (with parameters) and monitor while on paxlovid. Continue HCTZ Status: Chronic (5) Mild cognitive impairment: Problem comment: -monitor for acute delirium Status: Chronic (6) Insomnia: Problem comment: -hold quetiapine while on paxlovid. May restart 3 days after completing course -melatonin as needed (has used in the past) Status: Acute (7) Hyperbilirubinemia: Problem comment: -total bili 1.6, recheck in a.m. Status: Acute Total Time Spent Total Time Spent: Total time spent caring for the patient today was 75 minutes. This includes time spent for the visit reviewing the chart, time spent during the visit, time spent after the visit and documentation and planning in coordination of care.
[2024-09-23 15:00] VITALS: BP 148/82; PULSE 58; RESP 16; TEMP 36.7; O2SAT 96
[2024-09-23] MEDS: POTASSIUM CHLORIDE 10 MEQ CAPSULE ER 40 MEQ PO (15:49)
[2024-09-23] MEDS: SENNOSIDES/DOCUSATE TABLET 1 TAB PO (15:49)
[2024-09-23] MEDS: ACETAMINOPHEN 325 MG TABLET 650 MG PO (18:02)
[2024-09-23 19:00] VITALS: BP 162/94; PULSE 70; RESP 18; TEMP 37.1; O2SAT 95
[2024-09-23] MEDS: ENOXAPARIN 40 MG/0.4 ML INJ SUBCUT (20:03)
[2024-09-23] MEDS: polyethylene glycoL 3350 17 GM PACK PO (20:04)
[2024-09-23] MEDS: SODIUM CHLORIDE 0.9 % (FLUSH) 10 ML SYRINGE 5 ML IVF (20:04)
[2024-09-23] MEDS: MELATONIN 3 MG TABLET PO (20:04)
--- NOTE | 2024-09-23 22:47 | PC.NURSE ---
End of Shift: Patient pleasant and cooperative. Afebrile. O2 sats greater than 90% on room air. PRN Tylenol x1 for headache. Tolerating regular diet with no nausea. Up to bathroom and chair with SBA, walker and gait belt.
[2024-09-23 23:44] VITALS: BP 181/104; PULSE 76; RESP 20; TEMP 36.4; O2SAT 95
[2024-09-24 02:47] VITALS: BP 180/96; PULSE 76; RESP 20; TEMP 37.2; O2SAT 95
[2024-09-24] MEDS: ACETAMINOPHEN 325 MG TABLET 650 MG PO (02:52)
[2024-09-24 06:29] LABS: Hematocrit 41.6 % (37.0-53.0); Hemoglobin* 14.3 gm/dL (13.5-17.5); Mean Corpuscular HGB Conc 34 gm/dL (32-36); Mean Corpuscular Hemoglobin 31 pg (26-34); Mean Corpuscular Volume 89 fL (80-100); Platelet Count* 168 K/uL (140-440); Red Blood Count 4.66 m/uL (4.30-5.90); White Blood Count* 8.21 K/uL (4.50-11.00)
[2024-09-24 06:36] LABS: Slide Review Reflex No
--- NOTE | 2024-09-24 06:36 | PC.NURSE ---
Pt is alert and oriented x3. Afebrile. Pt reports ?mild? headache, pain managed with PRN medication. Pt?s lung sounds are clear. Pt has dry nonproductive cough. Pt is up SBA with walker, voiding and tolerating a regular diet. ?
[2024-09-24 06:59] LABS: Chloride* 104 mmol/L (96-114); Sodium* 138 mmol/L (135-149)
[2024-09-24 07:01] LABS: Est. Creatinine Clearance* 55.97; Estimated Glomerular Filt Rate 75 ml/min
[2024-09-24 07:02] LABS: Alanine Aminotransferase* 20 U/L (4-50); Alkaline Phosphatase* 92 U/L (40-150); Anion Gap 9 mEq/L (7-15); Aspartate Amino Transferase* 23 U/L (12-35); Bilirubin Total* 1.2 mg/dL (0.1-1.5); Blood Urea Nitrogen* 19 mg/dL (7-30); Carbon Dioxide* 25 mmol/L (20-32); Glucose* 107 mg/dL (60-115)
[2024-09-24 07:03] LABS: Calcium* 8.8 mg/dL (8.4-10.6)
[2024-09-24 07:05] LABS: C Reactive Protein* 8.9 mg/dL (0.5-1.0)
[2024-09-24 08:52] VITALS: BP 184/98; PULSE 82; RESP 28; TEMP 36.6; O2SAT 94
[2024-09-24] MEDS: dilTIAZem 120 MG CAP.ER.24H PO (08:58)
[2024-09-24] MEDS: hydroCHLOROthiazide 12.5 MG CAPSULE PO (08:58)
[2024-09-24] MEDS: SODIUM CHLORIDE 0.9 % (FLUSH) 10 ML SYRINGE 5 ML IVF (08:59)
--- NOTE | 2024-09-24 10:38 | PC.SOCIAL ---
Discharge planning: Spoke with pt who confirmed he is in the independent apartments at [facility] in [place] and does not receive any nursing services. Pt is planning to return today to his independent apartment alone and has no concerns about this and does not feel he needs any assistance at home. Pt states he is calling his brother for a ride back to his apartment. No social work needs identified.
[2024-09-24 10:54] VITALS: BP 178/103; PULSE 59; RESP 22; TEMP 36.9; O2SAT 95
[2024-09-24] MEDS: polyethylene glycoL 3350 17 GM PACK PO (11:00)
--- NOTE | 2024-09-24 11:05 | PM.DS1 ---
DS: Providers Provider Date Seen: 09/24/24 Date of admission: 09/23/24 13:47 Primary care physician: Mir Kang MD Admitting Clinician: Darrell Cunha MD Consults: OT, PT Attending Physician on discharge: Chani Dee MD Date of Discharge: 09/24/24 DS: Diagnosis Discharge Diagnosis (1) COVID-19: Status: Acute Problem details: -symptomatic with leg weakness and nausea without vomiting - both improving upon admission to floor -no hypoxia -symptomatic cares, incentive spirometry -Paxlovid sent to [facility] pharmacy for friend/family to bead picker and bring back to hospital as not available at this facility -back to baseline and requesting d/c home on 09/24 (2) Weakness: Status: Acute Problem details: -in setting of acute COVID infection -PT/OT consults -[employer] Professional for any discharge/placement needs (3) Nausea: Status: Acute Problem details: -resolved prior to admission to floor following IVF in ED. Tolerating orals. No further IVF for now (4) Hypertension: Status: Chronic Problem details: -continue diltiazem (with parameters) and monitor while on paxlovid. Continue HCTZ (5) Mild cognitive impairment: Status: Chronic Problem details: -no evidence of agitation or other concerns during stay (6) Insomnia: Status: Acute Problem details: -hold quetiapine while on paxlovid. May restart 3 days after completing course -melatonin as needed (has used in the past) (7) Hyperbilirubinemia: Status: Acute Problem details: -total bili 1.6, normalized on 09/24/24 -outpatient PCP f/u DS: Summary Hospital Course Hospital Course: Eliceo was admitted to the hospital on 09/23/2024 for weakness and feeling poorly in the setting of COVID infection. He was not hypoxic and did not require any inpatient COVID specific therapies. He felt better on hospital day 1 and was requesting discharge home back to [facility]. He remained stable on room air and no needs identified per therapy teams. He will take Paxlovid as an outpatient and see his PCP in follow-up. Status at Discharge Functional status at discharge: independent ambulation Overall status at discharge: patient is progressing back to baseline Time Spent with Patient Time attestation: Total time spent providing and/or coordinating discharge services: Time spent: Greater than 30 minutes Specific discharge activities: Medication reconciliation Exam Narrative: Exam Narrative: GEN: Alert and oriented, nontoxic. Sitting comfortably in bedside chair HEENT: EOMIs bilaterally, no scleral icterus CV: RRR, No concerning murmurs R: LCTA bilaterally without concerning wheezing or rales, air movement adequate Ext: wwp, trace BLE edema Skin: No concerning skin lesions or rashes on exposed skin Neuro: Nonfocal Psych: Appropriate Const: Vital Signs, click to edit/add: Vital Signs - 24 hr 09/23/24 11:56 09/23/24 13:37 09/23/24 14:02 Temperature 97.8 F 97.9 F 98.3 F Pulse Rate [Pulse Oximeter] 98 69 Pulse Rate [Right Radial] 67 Respiratory Rate 16 18 18 Blood Pressure [Le ft Arm] Blood Pressure [Ri ght Arm] 150/71 H Blood Pressure [Ri ght Upper Arm] 100/53 L 151/77 H Pulse Oximetry 96 95 95 Oxygen Delivery Ne thod Room Air Room Air Room Air 09/23/24 15:00 09/23/24 19:00 09/23/24 23:44 Temperature 98.1 F 98.8 F 97.5 F L Pulse Rate [Pulse Oximeter] Pulse Rate [Right Radial] 58 L 70 76 Respiratory Rate 16 18 20 Blood Pressure [Le ft Arm] Blood Pressure [Ri ght Arm] 148/82 H 162/94 H 181/104 H Blood Pressure [Ri ght Upper Arm] Pulse Oximetry 96 95 95 [facility] Room Air Room Air 09/23/24 23:44 09/24/24 02:47 09/24/24 08:52 Temperature 99.0 F 97.8 F Pulse Rate [Pulse Oximeter] Pulse Rate [Right Radial] 76 82 Respiratory Rate 20 20 28 H Blood Pressure [Le ft Arm] 184/98 H Blood Pressure [Ri ght Arm] 180/96 H Blood Pressure [Ri ght Upper Arm] Pulse Oximetry 95 94 Oxygen Delivery Ne thod Room Air Room Air 09/24/24 08:52 09/24/24 10:54 Temperature 98.5 F Pulse Rate [Pulse Oximeter] Pulse Rate [Right Radial] 82 59 L Respiratory Rate 28 H 22 Blood Pressure [Le ft Arm] 178/103 H Blood Pressure [Ri ght Arm] Blood Pressure [Ri ght Upper Arm] Pulse Oximetry 95 Oxygen Delivery Me thod Room Air DS: Data Data Completed and Pending Completed studies during hospitalization: Procedures Introduction of Remdesivir Anti-infective into Peripheral Vein, Percutaneous Approach, [employer] 5 (07/25/23) Labs on day of discharge: Labs from last 24 hours 09/24/24 09/23/24 09/23/24 06:18 12:25 12:14 WBC 8.21 10.32 RBC 4.66 5.28 Hgb 14.3 16.2 Hct 41.6 46.2 MCV 89 88 MCH 31 31 MCHC 34 35 RDW Coeff of Danii 12.8 Plt Count 168 205 Neut % (Auto) 81.8 H Lymph % (Auto) 9.[address] [place] % (Auto) 8.7 Eos % (Auto) 0.0 Baso % (Auto) 0.3 Neut # (Auto) 8.40 H Lymph # (Auto) 0.90 [place] # (Auto) 0.90 Eos # (Auto) 0.00 Baso # (Auto) 0.03 Abs Immat Gran (auto) 0.01 Imm/Tot Granulo (auto) 0.1 Sodium 138 136 Potassium 4.0 3.4 L Chloride 104 104 Carbon Dioxide 25 20 Anion Gap 9 12 BUN 19 17 Creatinine 1.0 1.2 Estimated Creat Clear 55.97 46.64 Estimated GFR 75 60 Glucose 107 151 H Lactate 1.7 Calcium 8.8 9.1 Total Bilirubin 1.2 1.6 H Direct Bilirubin 0.5 AST 23 23 ALT 20 24 Alkaline Phosphatase 92 117 C-Reactive Protein 8.9 H 5.7 H Total Protein 7.0 8.3 Albumin 4.0 4.6 Urine Color Urine Appearance Urine pH Ur Specific [place] Urine Protein Urine Glucose (UA) Urine Ketones Urine Blood Urine Nitrite Urine Bilirubin Urine Urobilinogen Ur Leukocyte Esterase Urine RBC Urine WBC Urine WBC Clumps Ur Squamous Epith Cells Urine Bacteria SARS-CoV-2 (PCR) Influenza Type A (PCR) Influenza Type B (PCR) RSV (PCR) POC Troponin I 0.02 09/23/24 09/23/24 12:05 11:33 WBC RBC Hgb Hct MCV MCH MCHC RDW Coeff of Danii Plt Count Neut % (Auto) Lymph % (Auto) [place] % (Auto) Eos % (Auto) Baso % (Auto) Neut # (Auto) Lymph # (Auto) [place] # (Auto) Eos # (Auto) Baso # (Auto) Abs Immat Gran (auto) Imm/Tot Granulo (auto) Sodium Potassium Chloride Carbon Dioxide Anion Gap BUN Creatinine Estimated Creat Clear Estimated GFR Glucose Lactate Calcium Total Bilirubin Direct Bilirubin AST ALT Alkaline Phosphatase C-Reactive Protein Total Protein Albumin Urine Color Yellow Urine Appearance Clear Urine pH 8.0 Ur Specific [place] 1.020 Urine Protein 2+ A Urine Glucose (UA) Negative Urine Ketones Negative Urine Blood Trace-intact A Urine Nitrite Negative Urine Bilirubin Negative Urine Urobilinogen 2.0 A Ur Leukocyte Esterase Negative Urine RBC 0-2 Urine WBC 0-2 Urine WBC Clumps None Ur Squamous Epith Cells None Urine Bacteria None SARS-CoV-2 (PCR) POSITIVE SARS-CoV-2 A Influenza Type A (PCR) Negative PCR FLU A Influenza Type B (PCR) Negative PCR FLU B RSV (PCR) Negative PCR RSV POC Troponin I Discharge Plan Discharge Disposition: Home, Self-Care Date of Admission: 09/23/24 13:47 Attending Provider on Discharge: Chani Dee Primary Care Provider: Mir Kang Condition: Improved Anticipated Discharge Date/Time: 09/24/24 11:03 Discharge Medications: New Paxlovid 150-100 mg tablets,dose pack See Rx Instructions .ROUTE .COMPLEX Qty: 20 0RF Rx Instructions: orally per package directions Continued diltiazem HCl 120 mg capsule,extended release 24hr 120 mg PO DAILY hydrochlorothiazide 12.5 mg capsule 12.5 mg PO DAILY 30 Days Qty: 90 1RF Held quetiapine 25 mg tablet 25 mg PO HS PRN (Reason: anxiety) Hold Instructions: hold while on Paxlovid, can restart 3 days after finishing Paxlovid course Discharge Orders: Discharge Order (Routine); Ordered 09/24/24 Ordered By: Chani Dee Additional Instructions: Take Paxlovid as prescribed. Minimize contact with others for the next 5-7 days given your COVID infection. No changes to home medications. See Dr. Kang for f/u in 1-2 weeks. Activity Level: Activity as Tolerated Discharge Diet: Regular Follow Up Appointments: Mir Kang MD [Primary Care Provider] - (f/u 7-14 days, hospital f/u) [facility]
--- NOTE | 2024-09-24 14:29 | PC.NURSE ---
Discharge: Patient pleasant and cooperative, alert and oriented. Patient vitally stable, lungs clear, BS WNL, IV removed, catheter intact. Patient denies pain. Patient tolerating regular diet, urinating well, no BM this shift. Patient independent in room. Patient signed belongings sheet and discharge form. Patient had no further questions regarding discharge. Patient left the floor by wheelchair to home at 1427, with his brother being his ride.
== END 2024-09-24 14:27 | disposition home or self-care (01) ==
LOC: ED 13:43 → MEDSURG 13:48
PROVIDERS: Physician Assistant; Admitting Provider Internal Medicine; Emergency Provider Emergency Medicine; PCP Internal Medicine; Visit Provider Internal Medicine
DX: U07.1 COVID-19 (principal); R53.1 Weakness; R11.0 Nausea; R05.9 Cough, unspecified; I10 Essential (primary) hypertension; G31.84 Mild cognitive impairment of uncertain or unknown etiology; G47.00 Insomnia, unspecified; E80.6 Other disorders of bilirubin metabolism
CPT/HCPCS: 36415; 71045; 80048; 80053; 80076; 81001; 83605; 84484; 85025; 85027; 86140; 87631; 93005; 96360; 96361; 96372; 97110; 97116; 97162; 97165; 97535; 99284; 99285; A9270; G0378; J1650; J7030